=== PATIENT | male | born 1945 | race Caucasian/White ===

== ENCOUNTER 2019-04-26 06:06 | Day surgery (SDC) | payer MEDICARE, BC ==
[2019-04-26] MEDS ORDERED: Fentanyl 100 MCG/2 ML VIAL ONE (06:34)
[2019-04-26] MEDS ORDERED: Ondansetron HCl/PF 4 MG/2 ML Vial IVP PRN (06:45)
[2019-04-26] MEDS ORDERED: Promethazine HCl 25 MG/ML VIAL SLOW IVP PRN (06:45)
[2019-04-26] MEDS ORDERED: Promethazine HCl 25 MG/ML VIAL IM PRN (06:45)
[2019-04-26 06:55] LABS: PTT 29.2 SEC (22.9-36.1); Prothrombin Time 13.6 SEC (12.0-14.7)
[2019-04-26] MEDS ORDERED: cefTRIAXone\\ROCEPHIN 2 GM VIAL ONE (06:55)
[2019-04-26] MEDS ORDERED: Sodium Chloride 0.9% 100 ML ONE (06:55)
[2019-04-26 07:08] LABS: Anion Gap 13 mmol/L (10-20); BUN (Urea Nitrogen) 28 mg/dL (8.4-25.7); Calc. Creatinine Clearance 79 mL/min (70-130); Calcium 9.5 mg/dL (7.8-10.44); Carbon Dioxide 26 mmol/L (23-31); Chloride 105 mmol/L (98-107); Estimated GFR-MDRD 88; Glucose 156 mg/dL (83-110); Potassium 3.9 mmol/L (3.5-5.1); Sodium 140 mmol/L (136-145)
[2019-04-26 07:59] LABS: Band 6 % (5-11); Eosinophils 2 % (0-10); Hemoglobin 14.5 g/dL (14.0-18.0); Lymphocytes 10 % (21-51); MDiff Complete? YES; Mean Corpuscular HGB CONC 34.1 g/dL (32.0-36.0); Mean Corpuscular Volume 90.9 fL (78.0-98.0); Mean Platelet Volume 7.4 fL (7.4-10.4); Metamyelocyte 1 % (0-0); Monocytes 5 % (0-10); Neutrophil 64 % (42-75); Platelet Count 169 thou/uL (130-400); RBC Distribution Width 11.4 % (11.5-14.5); RBC Morphology Normal; Reactive Lymphocytes 12 % (0-10); Red Blood Cell (RBC) Count 4.66 mill/uL (4.70-6.10); White Blood Cell (WBC) Count 5.7 thou/uL (4.8-10.8)
[2019-04-26] MEDS ORDERED: B & O ONE (09:08)
[2019-04-26] MEDS ORDERED: B & O PR SCH (09:15)
--- NOTE | 2019-04-26 10:20 | OP ---
DATE OF PROCEDURE: 04/26/2019 PREOPERATIVE DIAGNOSES: Lower urinary tract symptoms, bladder outlet obstruction, failing medical therapy. PROCEDURES PERFORMED: Cysto, transurethral resection of the prostate. ANESTHESIA: General. ESTIMATED BLOOD LOSS: Less than 100. DRAINS PLACED: 22-[place] Frederick three way with about 60 mL in the balloon hooked up to continuous bladder irrigation. FINDINGS: He had mild meatal stenosis requiring urethral dilatation to 28-Tu[place]uan. He had 1+ trabeculation. Two ureteral orifices with clear efflux. No tumor, foreign body, or stone. The median lobe was moderately enlarged. He had large lateral lobes. The prostate itself was not very long. DESCRIPTION OF PROCEDURE: Obtained written and verbal consent from the patient after receiving IV antibiotics, he was taken to the operating suite. He was placed in the supine position on the treatment table. PlexiPulses were placed in his lower extremities and turned on. He was given a general anesthetic and oral obturator intubation. He was then placed in the dorsal lithotomy position. He was sterilely prepped and draped. Cystoscopy was performed with a 22-[place] sheath. This was well lubricated, passed under direct vision through the male urethra into the urinary bladder with aid of a 30-degree lens, video camera, and monitor. The bladder was examined both with 30-degree and 70-degree lens with the findings above. The instruments were removed and we brought in a 24-[place] resectoscope sheath with a visual obturator. This would not pass because of some mild meatal stenosis, so we dilated to 28-[place]uan with [place] sounds and then this passed well lubricated easily and through the male urethra and prostatic urethra into the bladder. [place] resectoscope with the Gyrus generator and Gyrus prostate loop, 30 degree lens were used for landmarks including the trigone, bladder neck, verumontanum were identified. The floor was resected from the 7 o'clock to 5 o'clock position down to capsular fibers and back to just proximal to the verumontanum in the left lobe from 12 o'clock to 5 o'clock and then in the right lobe from the 12 o'clock to 7 o'clock. Apical tissue was resected in halfly bites. Coagulating current was used to control hemostasis. We leaked out all chips and clots with the Aplicor evacuator. We reinspected and there was nothing in the bladder. At this point, there was no evidence of any injury. We obtained hemostasis one more time with electrocautery unit. The instruments were removed. Frederick catheter was placed with aid of a catheter guide, 60 mL placed in the balloon. It was hand irrigated, it was clear, it was hooked up to continuous bladder irrigation. He was taken out of the dorsal lithotomy position. The catheter was secured on mild traction to his right thigh with a Velcro leg strap. He was awakened, extubated, and taken by stretcher to recovery room. Job ID: [id number]
[2019-04-26] MEDS ORDERED: Lidocaine 1% PF 5 ML VIAL ONE (14:01)
[2019-04-26] MEDS ORDERED: Ondansetron PF 4 MG/2 ML Vial ONE (14:01)
[2019-04-26] MEDS ORDERED: Dexamethasone 20 MG/5 ML VIAL ONE (14:01)
[2019-04-26] MEDS ORDERED: PROPOFOL 200 MG/20 ML VIAL ONE (14:01)
[2019-04-26] MEDS ORDERED: Acetaminophen/Codeine 30-300mg Tablet PO SCH (14:30)
[2019-04-26] MEDS ORDERED: B & O PR PRN (15:00)
--- NOTE | 2019-04-26 15:18 | EKG ---
Test Reason : PREOP Blood Pressure : / mmHG Vent. Rate : 080 BPM Atrial Rate : 080 BPM P-R Int : 150 ms QRS Dur : 098 ms QT Int : 394 ms P-R-T Axes : 031 -26 019 degrees QTc Int : 454 ms Sinus rhythm with Premature supraventricular complexes with frequent Premature ventricular complexes Otherwise normal ECG When compared with ECG of 16-JUN-2011 09:43, Premature ventricular complexes are now Present Premature supraventricular complexes are now Present Confirmed by DR. Terrance CHUA ([id number]) on 04/26/2019 3:18:37 PM Referred By: CHILO Confirmed By:DR. Terrance CHUA
[2019-04-26 15:50] VITALS: BMI 24.8
[2019-04-26] MEDS: Melatonin 3 MG TAB PO SCH (20:45)
[2019-04-26] MEDS: Acetaminophen/Codeine 30-300mg Tablet PO SCH (20:45)
[2019-04-26] MEDS: Pregabalin 75 MG CAP PO SCH (20:46)
[2019-04-26] MEDS: Finasteride 5 MG TAB PO SCH (20:46)
[2019-04-26] MEDS: Simvastatin 5 MG TAB PO SCH (20:46)
[2019-04-27] MEDS: cefTRIAXone\\ROCEPHIN 1 GM in Sodium Chloride 0.9% 100 ML IVPB SCH (05:43)
[2019-04-27] MEDS: Losartan 25 MG TAB PO SCH (08:25)
[2019-04-27] MEDS: Amlodipine 5 MG TAB PO SCH (08:26)
[2019-04-27] MEDS: Acetaminophen/Codeine 30-300mg Tablet PO SCH ×2 (08:26→20:07)
[2019-04-27] MEDS: Pregabalin 75 MG CAP PO SCH ×2 (08:28→20:08)
[2019-04-27] MEDS: Hydrochlorothiazide 25 MG TAB PO SCH (08:28)
[2019-04-27] MEDS: Fish Oil 1,000 MG CAP PO SCH (08:28)
[2019-04-27] MEDS: Melatonin 3 MG TAB PO SCH (20:08)
[2019-04-27] MEDS: Simvastatin 5 MG TAB PO SCH (20:08)
[2019-04-27] MEDS: Finasteride 5 MG TAB PO SCH (20:08)
[2019-04-28] MEDS: cefTRIAXone\\ROCEPHIN 1 GM in Sodium Chloride 0.9% 100 ML IVPB SCH (05:10)
[2019-04-28 07:56] VITALS: TEMP 97.5
[2019-04-28] MEDS: Hydrochlorothiazide 25 MG TAB PO SCH (07:59)
[2019-04-28] MEDS: Losartan 25 MG TAB PO SCH (07:59)
[2019-04-28] MEDS: Amlodipine 5 MG TAB PO SCH (07:59)
[2019-04-28] MEDS: Pregabalin 75 MG CAP PO SCH (08:00)
[2019-04-28] MEDS: Fish Oil 1,000 MG CAP PO SCH (08:00)
[2019-04-28 08:02] VITALS: BP 152/64
[2019-04-28] MEDS: Acetaminophen/Codeine 30-300mg Tablet PO SCH (08:03)
== END 2019-04-28 10:30 | disposition home or self-care (01) ==
LOC: SDC 06:06 → SURG B 10:03 → SDC 04-28 10:30
PROVIDERS: ATTEND Urology
PROC: 0VT08ZZ Resection of Prostate, Via Natural or Artificial Opening Endoscopic (ICD-10-PCS; principal; 2019-04-26)
DX: N40.1 Benign prostatic hyperplasia with lower urinary tract symptoms (principal); N13.8 Other obstructive and reflux uropathy; N41.1 Chronic prostatitis; E89.0 Postprocedural hypothyroidism; Z79.899 Other long term (current) drug therapy
CPT/HCPCS: 36415; 80048; 85007; 85027; 85610; 85730; 87086; 88305; 93005; 93010; J0696; J1100; J2001; J2405; J2704; J3010; J3490

== ENCOUNTER 2020-07-17 08:29 | Outpatient (CLI) | payer MEDICARE, BC ==
--- NOTE | 2020-07-17 09:52 | RAD ---
LEFT HIP 2 VIEWS: Date: 07/17/2020 HISTORY: Left hip pain. FINDINGS: There are degenerative changes in the left hip manifested by osteophyte formation and joint space chalino rowing. No fracture, dislocation, or bony destruction is seen. IMPRESSION: Left hip osteoarthritis. POS: AH
== END 2020-07-17 08:30 | disposition home or self-care (01) ==
LOC: BICRAD 08:29
PROVIDERS: ATTEND Nurse Practitioner Family
DX: M25.552 Pain in left hip (principal); M16.12 Unilateral primary osteoarthritis, left hip

== ENCOUNTER 2020-12-21 10:42 | Outpatient (CLI) | payer MEDICARE, BC | END 2020-12-21 10:43 | disposition home or self-care (01) | LOC: BICMRI 10:42 | PROVIDERS: ATTEND Nurse Practitioner Family | DX: M48.02 Spinal stenosis, cervical region (principal); M47.812 Spondylosis without myelopathy or radiculopathy, cervical region; M47.813 Spondylosis without myelopathy or radiculopathy, cervicothoracic region; M48.03 Spinal stenosis, cervicothoracic region; M89.9 Disorder of bone, unspecified | CPT/HCPCS: 72141 ==

== ENCOUNTER 2021-01-03 12:20 | Outpatient (CLI) | payer MEDICARE, BC | END 2021-01-03 12:21 | disposition home or self-care (01) | LOC: BICULT 12:20 | PROVIDERS: ATTEND Nurse Practitioner Family | DX: R93.89 Abnormal findings on diagnostic imaging of other specified body structures (principal); E04.2 Nontoxic multinodular goiter | CPT/HCPCS: 76536 ==

== ENCOUNTER 2021-02-27 08:05 | Outpatient (CLI) | payer MEDICARE, BC | END 2021-02-27 08:06 | disposition home or self-care (01) | LOC: BICRAD 08:05 | PROVIDERS: ATTEND Neurological Surgery | DX: M47.22 Other spondylosis with radiculopathy, cervical region (principal) | CPT/HCPCS: 72050 ==

== ENCOUNTER 2021-07-24 10:33 | Outpatient (CLI) | payer MEDICARE, BC | END 2021-07-24 10:34 | disposition home or self-care (01) | LOC: BICULT 10:33 | PROVIDERS: ATTEND Otolaryngology Plastic Surgery within the Head & Neck | DX: E04.2 Nontoxic multinodular goiter (principal) | CPT/HCPCS: 76536 ==

== ENCOUNTER 2021-08-16 13:01 | Outpatient (CLI) | payer MEDICARE, BC ==
[2021-08-16 14:18] LABS: #Basophils 0.1 10x3/uL (0.0-0.2); #Eosinphils 0.2 10x3/uL (0.0-0.5); #Monocytes 0.7 10x3/uL (0.0-1.1); #Neutrophils 3.4 10x3/uL (1.5-8.4); %Basophils 0.9 % (0.0-2.0); %Eosinophils 2.5 % (0.0-6.0); %Lymphocytes 34.4 % (18.0-47.0); %Monocytes 10.6 % (0.0-10.0); %Neutrophils 51.4 % (40.0-75.0); Hemoglobin 13.1 g/dL (13.5-17.5); Mean Corpuscular HGB CONC 33.2 g/dL (32.0-36.0); Mean Corpuscular Hemoglobin 30.5 pg (27.0-33.0); Mean Corpuscular Volume 92.1 fl (81.2-95.1); Mean Platelet Volume 10.2 fl (7.4-10.4); Platelet Count 194 10x3/uL (150-450); RBC Distribution Width 12.2 % (11.5-14.5); Red Blood Cell (RBC) Count 4.29 10x6/uL (4.32-5.72); White Blood Cell (WBC) Count 6.5 10x3/uL (3.5-10.5)
[2021-08-16 14:37] LABS: Prothrombin Time 10.8 sec (9.5-12.1)
[2021-08-16 14:43] LABS: Anion Gap 11 mmol/L (10-20); BUN (Urea Nitrogen) 24 mg/dL (8.4-25.7); Calc. Creatinine Clearance 0 mL/min (70-130); Calcium 9.2 mg/dL (7.8-10.44); Carbon Dioxide 30 mmol/L (23-31); Chloride 104 mmol/L (98-107); Glucose 150 mg/dL (83-110); Potassium 4.2 mmol/L (3.5-5.1); Sodium 141 mmol/L (136-145)
[2021-08-17 11:36] LABS: SARS-CoV-2 PCR by NAA Not Detected (NotDetected)
== END 2021-08-16 13:02 | disposition home or self-care (01) ==
LOC: LABBT 13:01
PROVIDERS: ATTEND Orthopaedic Surgery
DX: Z01.818 Encounter for other preprocedural examination (principal); M16.12 Unilateral primary osteoarthritis, left hip; Z20.822 Contact with and (suspected) exposure to COVID-19
CPT/HCPCS: 80048; 85025; 85610; 87081; 93005; U0003; U0005; 93010

== ENCOUNTER 2021-08-21 06:37 | Inpatient (IN) | payer MEDICARE, BC ==
[2021-08-15 09:42] VITALS: BMI 21.7
[2021-08-21] MEDS ORDERED: Sodium Chloride 0.9% 100 ML ONE (07:27)
[2021-08-21] MEDS ORDERED: ceFAZolin 2 GM/DEX 5% 100 ML BAG ONE (07:27)
[2021-08-21] MEDS ORDERED: Tranexamic Acid 1,000 MG/10 ML VIAL ONE (07:27)
[2021-08-21] MEDS ORDERED: Vancomycin 1 GM/200 ML BAG ONE (07:27)
[2021-08-21] MEDS ORDERED: Bupivacaine 0.5% 10 ML VIAL ONE (07:46)
[2021-08-21] MEDS ORDERED: Fentanyl 100 MCG/2 ML VIAL ONE ×5 (08:16→12:26)
[2021-08-21] MEDS ORDERED: Midazolam HCl 2 mg/2 ml Vial ONE (08:16)
[2021-08-21] MEDS ORDERED: Bupivacaine PF 0.5% 30 ML VIAL ONE (08:54)
[2021-08-21] MEDS ORDERED: Morphine PF 10 MG/10 ML VIAL ONE (09:07)
[2021-08-21] MEDS ORDERED: Propofol 1,000 MG/100 ML VIAL IV ONE (09:09)
[2021-08-21] MEDS ORDERED: Bupivacaine HCl 0.5%/Epinephrine 1:200,000/PF 30 ml Vial ONE (09:31)
[2021-08-21] MEDS ORDERED: Lidocaine 1% PF 5 ML VIAL ONE ×2 (09:31→09:33)
[2021-08-21] MEDS ORDERED: ePHEDrine 50 MG/ML VIAL ONE (09:31)
[2021-08-21] MEDS ORDERED: Glycopyrrolate 0.2 MG/ML 5 ML SYRINGE ONE (09:31)
[2021-08-21] MEDS ORDERED: Ondansetron PF 4 MG/2 ML Vial ONE (09:31)
[2021-08-21] MEDS ORDERED: PROPOFOL 200 MG/20 ML VIAL ONE (09:31)
[2021-08-21] MEDS ORDERED: Rocuronium Bromide 10 MG/ML (10ML VIAL) ONE (09:31)
[2021-08-21] MEDS ORDERED: Dexamethasone 20 MG/5 ML VIAL ONE (09:31)
[2021-08-21] MEDS ORDERED: Ondansetron PF 4 MG/2 ML Vial IVP PRN (09:41)
[2021-08-21] MEDS ORDERED: HYDROcodone/Acetaminophen 10/325 mg Tablet PO PRN (09:41)
[2021-08-21] MEDS ORDERED: Acetaminophen 325 MG TAB PO PRN (09:41)
[2021-08-21] MEDS ORDERED: diphenhydrAMINE 25 MG CAP PO PRN ×2 (09:41→13:45)
[2021-08-21] MEDS ORDERED: Promethazine HCl 25 MG/ML VIAL IM PRN ×3 (09:41→13:45)
[2021-08-21] MEDS ORDERED: Zolpidem Tartrate 5 MG TAB PO PRN ×2 (09:41→13:45)
[2021-08-21] MEDS ORDERED: traMADol HCl 50 MG TAB PO PRN ×2 (09:41)
[2021-08-21] MEDS ORDERED: Promethazine HCl 25 MG/ML VIAL IVPB PRN (11:12)
[2021-08-21] MEDS ORDERED: Ondansetron HCl/PF 4 MG/2 ML Vial IVP PRN (11:12)
[2021-08-21] MEDS ORDERED: Ketorolac Tromethamine 30 MG/ML VIAL ONE (13:13)
[2021-08-21] MEDS ORDERED: HYDROcodone/Acetaminophen 10/325 mg Tablet ONE (13:35)
[2021-08-21] MEDS ORDERED: diphenhydrAMINE 50 MG/ML VIAL IM/IV PRN (13:45)
[2021-08-21] MEDS ORDERED: Fentanyl CADD 100 ML IVPB SCH (13:45)
[2021-08-21] MEDS ORDERED: Naloxone HCl 0.4 mg/ml Vial IV PRN (13:45)
[2021-08-21] MEDS ORDERED: Dexamethasone 4 mg/ml Vial ONE (13:53)
[2021-08-21] MEDS ORDERED: Ketorolac Tromethamine 30 MG/ML VIAL IM SCH (14:00)
[2021-08-21] MEDS: Pregabalin 75 MG CAP PO SCH ×2 (17:35→22:19)
[2021-08-21] MEDS: Sodium Chloride 0.9% 1,000 ML IV SCH ×2 (17:47→18:48)
[2021-08-21] MEDS: ceFAZolin Sodium/D5W 2 GM in Premix Bag 1 BAG IVPB SCH (17:48)
[2021-08-21] MEDS: Ondansetron PF 4 MG/2 ML Vial IVP PRN (17:48)
[2021-08-21] MEDS: Ketorolac Tromethamine 30 MG/ML VIAL IVP PRN (19:01)
[2021-08-21] MEDS: Aspirin 81 mg Enteric Coated Tablet PO SCH (22:18)
[2021-08-21] MEDS: Losartan 25 MG TAB PO SCH (22:18)
[2021-08-21] MEDS: Hydrochlorothiazide 25 MG TAB PO SCH (22:18)
[2021-08-21] MEDS: Finasteride 5 MG TAB PO SCH (22:18)
[2021-08-21] MEDS: Amlodipine 5 MG TAB PO SCH (22:19)
[2021-08-21] MEDS: Simvastatin 10 MG TAB PO SCH (22:33)
[2021-08-22] MEDS: ceFAZolin Sodium/D5W 2 GM in Premix Bag 1 BAG IVPB SCH (00:33)
[2021-08-22 04:26] LABS: Hemoglobin 12.8 g/dL (14.0-18.0); Mean Corpuscular HGB CONC 34.4 g/dL (32.0-36.0); Mean Corpuscular Hemoglobin 31.9 pg (27.0-31.0); Mean Corpuscular Volume 92.7 fL (78.0-98.0); Mean Platelet Volume 7.5 fL (7.4-10.4); Platelet Count 177 thou/uL (130-400); RBC Distribution Width 11.3 % (11.5-14.5); White Blood Cell (WBC) Count 7.3 thou/uL (4.8-10.8)
[2021-08-22] MEDS: Sodium Chloride 0.9% 1,000 ML IV SCH ×2 (05:49→18:15)
[2021-08-22] MEDS: Ketorolac Tromethamine 30 MG/ML VIAL IVP PRN (06:29)
[2021-08-22] MEDS ORDERED: HYDROcodone/Acetaminophen 10/325 mg Tablet PO PRN (09:48)
[2021-08-22] MEDS ORDERED: traMADol HCl 50 MG TAB PO PRN ×2 (09:51→09:52)
[2021-08-22] MEDS ORDERED: Fentanyl CADD 100 ML IVPB PRN (09:54)
[2021-08-22] MEDS: Aspirin 81 mg Enteric Coated Tablet PO SCH ×2 (10:14→22:18)
[2021-08-22] MEDS: Multivitamin W/ Minerals 1 TAB PO SCH (10:15)
[2021-08-22] MEDS: Ferrous Gluconate 324 MG TAB PO SCH ×2 (10:15→22:19)
[2021-08-22] MEDS: Pregabalin 75 MG CAP PO SCH ×3 (10:15→22:19)
[2021-08-22] MEDS: HYDROcodone/Acetaminophen 10/325 mg Tablet PO PRN ×2 (10:25→14:50)
[2021-08-22] MEDS: Senokot S 8.6-50 MG TAB PO SCH ×2 (10:46→22:25)
[2021-08-22] MEDS: Hydrochlorothiazide 25 MG TAB PO SCH (22:18)
[2021-08-22] MEDS: Finasteride 5 MG TAB PO SCH (22:19)
[2021-08-22] MEDS: Losartan 25 MG TAB PO SCH (22:19)
[2021-08-22] MEDS: Amlodipine 5 MG TAB PO SCH (22:19)
[2021-08-22] MEDS: Simvastatin 10 MG TAB PO SCH (22:32)
[2021-08-23] MEDS: Ondansetron PF 4 MG/2 ML Vial IVP PRN (01:58)
[2021-08-23] MEDS: Sodium Chloride 0.9% 1,000 ML IV SCH (04:29)
[2021-08-23] MEDS: HYDROcodone/Acetaminophen 10/325 mg Tablet PO PRN ×2 (05:06→10:26)
[2021-08-23] MEDS: Pregabalin 75 MG CAP PO SCH (10:18)
[2021-08-23] MEDS: Aspirin 81 mg Enteric Coated Tablet PO SCH (10:18)
[2021-08-23] MEDS: Multivitamin W/ Minerals 1 TAB PO SCH (10:19)
[2021-08-23] MEDS: Ferrous Gluconate 324 MG TAB PO SCH (10:19)
[2021-08-23] MEDS: Senokot S 8.6-50 MG TAB PO SCH (10:26)
[2021-08-23] MEDS ORDERED: Bisacodyl 10 MG SUPP PR SCH (11:00)
[2021-08-23] MEDS ORDERED: Polyethylene Glycol 3350 17 GM Packet PO SCH (11:00)
[2021-08-23 12:01] VITALS: BP 126/62; TEMP 98.5
[2021-08-24] MEDS ORDERED: Polyethylene Glycol 3350 17 GM Packet PO SCH (09:00)
== END 2021-08-23 16:23 | disposition home or self-care (01) | DRG 470 ==
LOC: SDC 06:37 → SJJU 09:41
PROVIDERS: ADMIT Orthopaedic Surgery; ATTEND Orthopaedic Surgery
PROC: 0SRB03A Replacement of Left Hip Joint with Ceramic Synthetic Substitute, Uncemented, Open Approach (ICD-10-PCS; principal; 2021-08-21)
DX: M16.12 Unilateral primary osteoarthritis, left hip (principal); F03.90 Unspecified dementia, unspecified severity, without behavioral disturbance, psychotic disturbance, mood disturbance, and anxiety; Z96.651 Presence of right artificial knee joint; F41.9 Anxiety disorder, unspecified; Z90.89 Acquired absence of other organs; Z98.42 Cataract extraction status, left eye; Z98.41 Cataract extraction status, right eye; Z98.890 Other specified postprocedural states
CPT/HCPCS: 36415; 85027; C1889; J1100; J1885; J2250; J2274; J2405; J2704; J3010; J3370; J3490; J7050; S0020

== ENCOUNTER 2022-03-19 15:27 | Inpatient (IN) | payer MEDICARE, BC ==
[~2022-03-19 15:27] MED LIST: Heparin 1,000 UNITS/ML VIAL ONE
[2022-03-19] MEDS ORDERED: Morphine 4 MG/ML VIAL SLOW IVP PRN (20:17)
[2022-03-19] MEDS ORDERED: Benzonatate 100 MG CAP PO PRN (20:18)
[2022-03-19] MEDS ORDERED: Dextrose 50% Abboject 50 ML SYRINGE SLOW IVP PRN (20:19)
[2022-03-19] MEDS ORDERED: Acetaminophen 325 MG TAB PO PRN (20:19)
[2022-03-19] MEDS ORDERED: Acetaminophen 650 MG Suppository PR PRN (20:19)
[2022-03-19] MEDS ORDERED: Dextrose 5% in Water 1,000 ML IV PRN (20:19)
[2022-03-19] MEDS: Ketorolac Tromethamine 30 MG/ML VIAL IVP SCH (20:50)
[2022-03-19 20:51] VITALS: BMI 20.9
[2022-03-19] MEDS ORDERED: traZODone HCl 50 MG TAB PO SCH (23:59)
[2022-03-20] MEDS ORDERED: Cefepime 2 GM in Sodium Chloride 0.9% 100 ML IVPB SCH (03:00)
[2022-03-20] MEDS: Morphine 4 MG/ML VIAL SLOW IVP PRN ×2 (08:00→11:36)
[2022-03-20 08:19] LABS: #Eosinphils 0.1 thou/uL (0.0-0.7); #Lymphocytes 1.1 thou/uL (1.20-3.40); #Monocytes 0.8 thou/uL (0.11-0.59); #Neutrophils 6.3 thou/uL (1.40-6.50); %Basophils 0.1 % (0.0-1.0); %Eosinophils 0.6 % (0.0-10.0); %Lymphocytes 13.6 % (21.0-51.0); %Monocytes 9.9 % (0.0-10.0); %Neutrophils 75.7 % (42.0-75.0); Hemoglobin 10.1 g/dL (14.0-18.0); Mean Corpuscular HGB CONC 33.7 g/dL (32.0-36.0); Mean Corpuscular Hemoglobin 32.3 pg (27.0-31.0); Mean Corpuscular Volume 95.8 fL (78.0-98.0); Mean Platelet Volume 7.3 fL (7.4-10.4); Platelet Count 221 thou/uL (130-400); RBC Distribution Width 12.2 % (11.5-14.5); Red Blood Cell (RBC) Count 3.12 mill/uL (4.70-6.10); White Blood Cell (WBC) Count 8.3 thou/uL (4.8-10.8)
[2022-03-20 08:31] LABS: Anion Gap 13 mmol/L (10-20); BUN (Urea Nitrogen) 15 mg/dL (8.4-25.7); Calc. Creatinine Clearance 86 mL/min (70-130); Calcium 8.9 mg/dL (7.8-10.44); Carbon Dioxide 27 mmol/L (23-31); Chloride 104 mmol/L (98-107); Estimated GFR 95; Glucose 138 mg/dL (83-110); Potassium 3.7 mmol/L (3.5-5.1); Sodium 140 mmol/L (136-145)
[2022-03-20] MEDS ORDERED: Piperacillin/Tazobactam 3.375 GM in Sodium Chloride 0.9% 100 ML IVPB SCH ×2 (11:15→12:00)
[2022-03-20] MEDS: Enoxaparin Sodium 40 MG/0.4 ML SYRINGE SC SCH (11:37)
[2022-03-20] MEDS ORDERED: Iopamidol-370 76% 500 ML 1 ML ONE (11:54)
[2022-03-20] MEDS: Ondansetron PF 4 MG/2 ML Vial IVP PRN (13:34)
[2022-03-20] MEDS: Azithromycin 500 MG in Sodium Chloride 0.9% 250 ML 250 ML IVPB SCH (15:12)
[2022-03-20] MEDS: methylPREDNISolone Sod Succ 40 MG VIAL IVP SCH ×2 (15:12→20:59)
[2022-03-20] MEDS: Piperacillin/Tazobactam 3.375 GM in Sodium Chloride 0.9% 100 ML IVPB SCH (18:01)
[2022-03-20] MEDS: Amlodipine 5 MG TAB PO SCH (20:59)
[2022-03-20] MEDS: Simvastatin 10 MG TAB PO SCH (20:59)
[2022-03-20] MEDS: Finasteride 5 MG TAB PO SCH (20:59)
[2022-03-20] MEDS: Ketorolac Tromethamine 30 MG/ML VIAL IVP SCH ×2 (20:59→21:05)
[2022-03-20] MEDS: Pregabalin 75 MG CAP PO SCH (20:59)
[2022-03-20] MEDS: Melatonin 3 MG TAB PO SCH (20:59)
[2022-03-20] MEDS ORDERED: Ketorolac Tromethamine 30 MG/ML VIAL ONE (21:05)
[2022-03-21] MEDS: Piperacillin/Tazobactam 3.375 GM in Sodium Chloride 0.9% 100 ML IVPB SCH ×3 (01:09→18:12)
[2022-03-21] MEDS: Morphine 4 MG/ML VIAL SLOW IVP PRN (01:22)
[2022-03-21] MEDS: methylPREDNISolone Sod Succ 40 MG VIAL IVP SCH ×3 (05:10→21:19)
[2022-03-21] MEDS: Acetaminophen/Codeine 30-300mg Tablet PO PRN (08:07)
[2022-03-21] MEDS: Losartan 25 MG TAB PO SCH (08:08)
[2022-03-21] MEDS: Enoxaparin Sodium 40 MG/0.4 ML SYRINGE SC SCH (08:08)
[2022-03-21] MEDS: Pregabalin 75 MG CAP PO SCH ×3 (08:09→21:20)
[2022-03-21] MEDS ORDERED: Magnevist 469MG/ML 20 ML VIAL ONE (12:34)
[2022-03-21] MEDS: HumaLOG 300 UNITS/3 ML VIAL SC PRN ×3 (12:45→21:22)
[2022-03-21] MEDS ORDERED: Communication Order-Pharmacy FS ONE (15:25)
[2022-03-21] MEDS: Azithromycin 500 MG in Sodium Chloride 0.9% 250 ML 250 ML IVPB SCH (16:05)
[2022-03-21] MEDS ORDERED: VANCOMYCIN 1.75 GM/500 ML BAG 1.75 GM in Premix Bag 1 BAG IVPB SCH ×2 (16:15→20:00)
[2022-03-21] MEDS ORDERED: VANCOMYCIN 1.25 GM/250 ML BAG IVPB SCH (21:00)
[2022-03-21] MEDS ORDERED: Ketorolac Tromethamine 30 MG/ML VIAL ONE (21:12)
[2022-03-21] MEDS: Finasteride 5 MG TAB PO SCH (21:19)
[2022-03-21] MEDS: Melatonin 3 MG TAB PO SCH (21:19)
[2022-03-21] MEDS: Simvastatin 10 MG TAB PO SCH (21:20)
[2022-03-21] MEDS: Ketorolac Tromethamine 30 MG/ML VIAL IVP SCH (21:21)
[2022-03-21] MEDS: Amlodipine 5 MG TAB PO SCH (21:21)
[2022-03-21 21:56] LABS: Strep pneumo Urine Ag NEGATIVE (NEGATIVE)
[2022-03-21 22:34] LABS: Legionella Urinary Ag Negative (Negative)
[2022-03-22] MEDS: Piperacillin/Tazobactam 3.375 GM in Sodium Chloride 0.9% 100 ML IVPB SCH ×3 (01:12→17:42)
[2022-03-22] MEDS: HumaLOG 300 UNITS/3 ML VIAL SC PRN ×4 (05:47→20:43)
[2022-03-22] MEDS: methylPREDNISolone Sod Succ 40 MG VIAL IVP SCH ×3 (05:48→20:46)
[2022-03-22 06:31] LABS: #Lymphocytes 0.8 thou/uL (1.20-3.40); #Monocytes 0.5 thou/uL (0.11-0.59); #Neutrophils 10.2 thou/uL (1.40-6.50); %Eosinophils 0.1 % (0.0-10.0); %Lymphocytes 7.3 % (21.0-51.0); %Monocytes 4.4 % (0.0-10.0); %Neutrophils 88.2 % (42.0-75.0); Mean Corpuscular HGB CONC 32.9 g/dL (32.0-36.0); Mean Corpuscular Hemoglobin 31.5 pg (27.0-31.0); Mean Corpuscular Volume 95.8 fL (78.0-98.0); Mean Platelet Volume 8.2 fL (7.4-10.4); Platelet Count 233 thou/uL (130-400); RBC Distribution Width 12.1 % (11.5-14.5); Red Blood Cell (RBC) Count 3.48 mill/uL (4.70-6.10); White Blood Cell (WBC) Count 11.6 thou/uL (4.8-10.8)
[2022-03-22] MEDS: Enoxaparin Sodium 40 MG/0.4 ML SYRINGE SC SCH (08:59)
[2022-03-22] MEDS: Pregabalin 75 MG CAP PO SCH ×3 (09:00→20:30)
[2022-03-22] MEDS: Losartan 25 MG TAB PO SCH (09:01)
[2022-03-22] MEDS: Vancomycin 1 GM in Premix Bag 1 BAG IVPB SCH ×2 (09:26→20:28)
[2022-03-22] MEDS ORDERED: Piperacillin/Tazobactam 3.375 GM VIAL ONE (11:06)
[2022-03-22] MEDS: Acetaminophen/Codeine 30-300mg Tablet PO PRN (11:18)
[2022-03-22] MEDS: Azithromycin 500 MG in Sodium Chloride 0.9% 250 ML 250 ML IVPB SCH (15:34)
[2022-03-22] MEDS: Amlodipine 5 MG TAB PO SCH (20:29)
[2022-03-22] MEDS: Finasteride 5 MG TAB PO SCH (20:29)
[2022-03-22] MEDS: Simvastatin 10 MG TAB PO SCH (20:30)
[2022-03-22] MEDS: Melatonin 3 MG TAB PO SCH (20:30)
[2022-03-22] MEDS: Ketorolac Tromethamine 30 MG/ML VIAL IVP PRN (20:31)
[2022-03-23] MEDS: Morphine 4 MG/ML VIAL SLOW IVP PRN (01:09)
[2022-03-23] MEDS: Piperacillin/Tazobactam 3.375 GM in Sodium Chloride 0.9% 100 ML IVPB SCH ×3 (01:10→17:12)
[2022-03-23] MEDS: Acetaminophen/Codeine 30-300mg Tablet PO PRN (05:14)
[2022-03-23] MEDS: methylPREDNISolone Sod Succ 40 MG VIAL IVP SCH ×2 (05:15→20:48)
[2022-03-23] MEDS: HumaLOG 300 UNITS/3 ML VIAL SC PRN ×4 (05:18→20:54)
[2022-03-23] MEDS: Ketorolac Tromethamine 30 MG/ML VIAL IVP PRN ×2 (05:20→23:19)
[2022-03-23 07:42] LABS: Vancomycin, Trough 12.9 ug/mL
[2022-03-23] MEDS: Pregabalin 75 MG CAP PO SCH ×3 (08:12→20:49)
[2022-03-23] MEDS: Enoxaparin Sodium 40 MG/0.4 ML SYRINGE SC SCH (08:13)
[2022-03-23] MEDS: Losartan 25 MG TAB PO SCH (08:13)
[2022-03-23] MEDS: VANCOMYCIN 1.25 GM/250 ML BAG 1.25 GM in Premix Bag 1 BAG IVPB SCH ×2 (08:16→21:18)
[2022-03-23] MEDS: Azithromycin 500 MG in Sodium Chloride 0.9% 250 ML 250 ML IVPB SCH (15:54)
[2022-03-23] MEDS: Ondansetron ODT 4 MG TAB PO PRN (17:27)
[2022-03-23] MEDS: Amlodipine 5 MG TAB PO SCH (20:48)
[2022-03-23] MEDS: Melatonin 3 MG TAB PO SCH (20:49)
[2022-03-23] MEDS: Finasteride 5 MG TAB PO SCH (20:50)
[2022-03-23] MEDS: Simvastatin 10 MG TAB PO SCH (20:54)
[2022-03-23] MEDS: Ondansetron PF 4 MG/2 ML Vial IVP PRN (23:19)
[2022-03-24] MEDS: Piperacillin/Tazobactam 3.375 GM in Sodium Chloride 0.9% 100 ML IVPB SCH ×4 (00:23→17:04)
[2022-03-24] MEDS: Acetaminophen/Codeine 30-300mg Tablet PO PRN ×2 (01:45→20:43)
[2022-03-24] MEDS: HumaLOG 300 UNITS/3 ML VIAL SC PRN ×3 (06:01→20:49)
[2022-03-24] MEDS: VANCOMYCIN 1.25 GM/250 ML BAG 1.25 GM in Premix Bag 1 BAG IVPB SCH (08:12)
[2022-03-24] MEDS: Enoxaparin Sodium 40 MG/0.4 ML SYRINGE SC SCH (08:13)
[2022-03-24] MEDS: Ondansetron PF 4 MG/2 ML Vial IVP PRN ×2 (08:13→19:16)
[2022-03-24] MEDS: methylPREDNISolone Sod Succ 40 MG VIAL IVP SCH (08:17)
[2022-03-24] MEDS: Pregabalin 75 MG CAP PO SCH ×3 (08:17→20:43)
[2022-03-24] MEDS: Losartan 25 MG TAB PO SCH (08:17)
[2022-03-24] MEDS: Ondansetron ODT 4 MG TAB PO PRN (13:05)
[2022-03-24] MEDS: Metoclopramide HCl 10 MG/2 ML VIAL IVP PRN ×2 (14:31→23:27)
[2022-03-24] MEDS: Amlodipine 5 MG TAB PO SCH (20:44)
[2022-03-24] MEDS: Simvastatin 10 MG TAB PO SCH (20:44)
[2022-03-24] MEDS: Finasteride 5 MG TAB PO SCH (20:44)
[2022-03-24] MEDS: Melatonin 3 MG TAB PO SCH (21:39)
[2022-03-24] MEDS: Ondansetron PF 4 MG/2 ML Vial IVP SCH (23:27)
[2022-03-24] MEDS: Ketorolac Tromethamine 30 MG/ML VIAL IVP PRN (23:27)
[2022-03-25] MEDS: Piperacillin/Tazobactam 3.375 GM in Sodium Chloride 0.9% 100 ML IVPB SCH ×4 (02:24→23:30)
[2022-03-25] MEDS: Ketorolac Tromethamine 30 MG/ML VIAL IVP PRN ×2 (05:35→16:07)
[2022-03-25] MEDS: Ondansetron PF 4 MG/2 ML Vial IVP SCH ×4 (05:35→23:30)
[2022-03-25] MEDS: HumaLOG 300 UNITS/3 ML VIAL SC PRN ×3 (05:50→17:08)
[2022-03-25] MEDS: Losartan 25 MG TAB PO SCH (08:25)
[2022-03-25] MEDS: Enoxaparin Sodium 40 MG/0.4 ML SYRINGE SC SCH (08:25)
[2022-03-25] MEDS: Pregabalin 75 MG CAP PO SCH ×3 (08:26→21:08)
[2022-03-25] MEDS: Acetaminophen/Codeine 30-300mg Tablet PO PRN ×2 (08:37→21:07)
[2022-03-25] MEDS: Metoclopramide HCl 10 MG/2 ML VIAL IVP PRN ×2 (15:02→21:08)
[2022-03-25] MEDS: Melatonin 3 MG TAB PO SCH (21:07)
[2022-03-25] MEDS: Finasteride 5 MG TAB PO SCH (21:08)
[2022-03-25] MEDS: Amlodipine 5 MG TAB PO SCH (21:08)
[2022-03-25] MEDS: Ondansetron PF 4 MG/2 ML Vial IVP PRN (21:08)
[2022-03-25] MEDS: Simvastatin 10 MG TAB PO SCH (21:13)
[2022-03-26] MEDS: Ondansetron PF 4 MG/2 ML Vial IVP SCH ×3 (04:55→17:22)
[2022-03-26 06:12] LABS: #Basophils 0.1 thou/uL (0.0-0.2); #Eosinphils 0.1 thou/uL (0.0-0.7); #Monocytes 0.9 thou/uL (0.11-0.59); #Neutrophils 10.5 thou/uL (1.40-6.50); %Basophils 0.7 % (0.0-1.0); %Lymphocytes 8.2 % (21.0-51.0); %Monocytes 7.3 % (0.0-10.0); %Neutrophils 82.9 % (42.0-75.0); Hemoglobin 10.8 g/dL (14.0-18.0); Mean Corpuscular Hemoglobin 30.7 pg (27.0-31.0); Mean Corpuscular Volume 95.9 fL (78.0-98.0); Mean Platelet Volume 8.2 fL (7.4-10.4); Platelet Count 221 thou/uL (130-400); RBC Distribution Width 12.5 % (11.5-14.5); Red Blood Cell (RBC) Count 3.53 mill/uL (4.70-6.10); White Blood Cell (WBC) Count 12.7 thou/uL (4.8-10.8)
[2022-03-26 06:37] LABS: Anion Gap 9 mmol/L (10-20); BUN (Urea Nitrogen) 19 mg/dL (8.4-25.7); Calc. Creatinine Clearance 74 mL/min (70-130); Calcium 8.1 mg/dL (7.8-10.44); Carbon Dioxide 30 mmol/L (23-31); Chloride 103 mmol/L (98-107); Estimated GFR 91; Glucose 129 mg/dL (83-110); Potassium 3.8 mmol/L (3.5-5.1); Sodium 138 mmol/L (136-145)
[2022-03-26] MEDS: Pregabalin 75 MG CAP PO SCH ×3 (08:31→20:36)
[2022-03-26] MEDS: Losartan 25 MG TAB PO SCH (08:31)
[2022-03-26] MEDS: Acetaminophen/Codeine 30-300mg Tablet PO PRN ×2 (08:31→20:35)
[2022-03-26] MEDS: Piperacillin/Tazobactam 3.375 GM in Sodium Chloride 0.9% 100 ML IVPB SCH ×2 (08:33→16:17)
[2022-03-26] MEDS: Enoxaparin Sodium 40 MG/0.4 ML SYRINGE SC SCH (08:33)
[2022-03-26] MEDS: Metoclopramide HCl 10 MG/2 ML VIAL IVP PRN ×3 (08:33→20:35)
[2022-03-26] MEDS ORDERED: Iopamidol-370 76% 500 ML 1 ML ONE (09:26)
[2022-03-26] MEDS: HumaLOG 300 UNITS/3 ML VIAL SC PRN ×2 (11:20→17:22)
[2022-03-26] MEDS: Ondansetron PF 4 MG/2 ML Vial IVP PRN (20:35)
[2022-03-26] MEDS: Finasteride 5 MG TAB PO SCH (20:36)
[2022-03-26] MEDS: Melatonin 3 MG TAB PO SCH (20:36)
[2022-03-26] MEDS: Amlodipine 5 MG TAB PO SCH (20:36)
[2022-03-26] MEDS: Simvastatin 10 MG TAB PO SCH (21:10)
[2022-03-27] MEDS: Piperacillin/Tazobactam 3.375 GM in Sodium Chloride 0.9% 100 ML IVPB SCH ×3 (01:03→17:26)
[2022-03-27] MEDS: Ondansetron PF 4 MG/2 ML Vial IVP SCH ×5 (01:03→23:33)
[2022-03-27] MEDS: Pregabalin 75 MG CAP PO SCH ×3 (09:06→20:25)
[2022-03-27] MEDS: Enoxaparin Sodium 40 MG/0.4 ML SYRINGE SC SCH (09:08)
[2022-03-27] MEDS: Losartan 25 MG TAB PO SCH (09:08)
[2022-03-27] MEDS: Acetaminophen/Codeine 30-300mg Tablet PO PRN ×2 (09:22→20:26)
[2022-03-27] MEDS: HumaLOG 300 UNITS/3 ML VIAL SC PRN (12:18)
[2022-03-27] MEDS: Metoclopramide HCl 10 MG TAB PO SCH ×2 (17:55→20:27)
[2022-03-27] MEDS: Ondansetron PF 4 MG/2 ML Vial IVP PRN (20:25)
[2022-03-27] MEDS: Melatonin 3 MG TAB PO SCH (20:26)
[2022-03-27] MEDS: Mirtazapine 30 MG TAB PO SCH (20:26)
[2022-03-27] MEDS: Amlodipine 5 MG TAB PO SCH (20:27)
[2022-03-27] MEDS: Finasteride 5 MG TAB PO SCH (20:27)
[2022-03-27] MEDS: Simvastatin 10 MG TAB PO SCH (20:27)
[2022-03-28] MEDS: Piperacillin/Tazobactam 3.375 GM in Sodium Chloride 0.9% 100 ML IVPB SCH ×3 (01:01→17:20)
[2022-03-28] MEDS: Ondansetron PF 4 MG/2 ML Vial IVP SCH ×3 (05:07→17:20)
[2022-03-28 07:39] LABS: #Eosinphils 0.5 thou/uL (0.0-0.7); #Lymphocytes 1.4 thou/uL (1.20-3.40); #Monocytes 1.1 thou/uL (0.11-0.59); %Basophils 0.4 % (0.0-1.0); %Eosinophils 4.8 % (0.0-10.0); %Lymphocytes 12.7 % (21.0-51.0); %Monocytes 9.9 % (0.0-10.0); %Neutrophils 72.3 % (42.0-75.0); Hemoglobin 10.6 g/dL (14.0-18.0); Mean Corpuscular HGB CONC 31.1 g/dL (32.0-36.0); Mean Corpuscular Hemoglobin 30.3 pg (27.0-31.0); Mean Corpuscular Volume 97.4 fL (78.0-98.0); Mean Platelet Volume 7.8 fL (7.4-10.4); Platelet Count 242 thou/uL (130-400); RBC Distribution Width 12.6 % (11.5-14.5); White Blood Cell (WBC) Count 11.1 thou/uL (4.8-10.8)
[2022-03-28] MEDS: Acetaminophen/Codeine 30-300mg Tablet PO PRN (08:19)
[2022-03-28] MEDS: Pregabalin 75 MG CAP PO SCH ×3 (08:21→20:30)
[2022-03-28] MEDS: Metoclopramide HCl 10 MG TAB PO SCH ×4 (08:21→20:31)
[2022-03-28] MEDS: Losartan 25 MG TAB PO SCH (08:21)
[2022-03-28] MEDS: Enoxaparin Sodium 40 MG/0.4 ML SYRINGE SC SCH (08:22)
[2022-03-28] MEDS ORDERED: Polyethylene Glycol 3350 17 GM Packet PO PRN (08:36)
[2022-03-28] MEDS: HumaLOG 300 UNITS/3 ML VIAL SC PRN ×2 (12:15→20:34)
[2022-03-28] MEDS: Mirtazapine 30 MG TAB PO SCH (20:30)
[2022-03-28] MEDS: Melatonin 3 MG TAB PO SCH (20:30)
[2022-03-28] MEDS: Simvastatin 10 MG TAB PO SCH (20:31)
[2022-03-28] MEDS: Finasteride 5 MG TAB PO SCH (20:31)
[2022-03-28] MEDS: Amlodipine 5 MG TAB PO SCH (20:32)
[2022-03-29] MEDS: Acetaminophen/Codeine 30-300mg Tablet PO PRN (01:48)
[2022-03-29] MEDS: Ondansetron PF 4 MG/2 ML Vial IVP SCH ×3 (01:50→11:44)
[2022-03-29] MEDS: Piperacillin/Tazobactam 3.375 GM in Sodium Chloride 0.9% 100 ML IVPB SCH ×2 (01:50→08:25)
[2022-03-29 07:00] LABS: Anion Gap 13 mmol/L (10-20); BUN (Urea Nitrogen) 13 mg/dL (8.4-25.7); Calc. Creatinine Clearance 72 mL/min (70-130); Calcium 8.1 mg/dL (7.8-10.44); Carbon Dioxide 31 mmol/L (23-31); Chloride 99 mmol/L (98-107); Estimated GFR 90; Glucose 160 mg/dL (83-110); Potassium 4.1 mmol/L (3.5-5.1); Sodium 139 mmol/L (136-145)
[2022-03-29] MEDS: Pregabalin 75 MG CAP PO SCH ×2 (08:25→14:08)
[2022-03-29] MEDS: Enoxaparin Sodium 40 MG/0.4 ML SYRINGE SC SCH (08:25)
[2022-03-29] MEDS: Metoclopramide HCl 10 MG TAB PO SCH ×2 (08:25→11:44)
[2022-03-29] MEDS: Losartan 25 MG TAB PO SCH (08:25)
[2022-03-29 08:30] VITALS: BP 144/72; TEMP 97.2
[2022-03-29] MEDS: HumaLOG 300 UNITS/3 ML VIAL SC PRN (11:44)
[2022-03-29] MEDS ORDERED: Bisacodyl 10 MG SUPP PR PRN (12:11)
== END 2022-03-29 16:05 | DRG 177 ==
LOC: T4-A 15:27
PROVIDERS: ADMIT Internal Medicine; ATTEND Internal Medicine
PROC: 02HV33Z Insertion of Infusion Device into Superior Vena Cava, Percutaneous Approach (ICD-10-PCS; principal; 2022-03-28)
PROC: B5181ZA Fluoroscopy of Superior Vena Cava using Low Osmolar Contrast, Guidance (ICD-10-PCS; 2022-03-28)
PROC: B548ZZA Ultrasonography of Superior Vena Cava, Guidance (ICD-10-PCS; 2022-03-28)
DX: J85.1 Abscess of lung with pneumonia (principal); E43 Unspecified severe protein-calorie malnutrition; J15.9 Unspecified bacterial pneumonia; J91.8 Pleural effusion in other conditions classified elsewhere; K86.2 Cyst of pancreas; J85.0 Gangrene and necrosis of lung; U09.9 Post COVID-19 condition, unspecified; Z20.822 Contact with and (suspected) exposure to COVID-19; E78.5 Hyperlipidemia, unspecified; E11.9 Type 2 diabetes mellitus without complications; K86.89 Other specified diseases of pancreas; E04.2 Nontoxic multinodular goiter; I10 Essential (primary) hypertension; Z96.651 Presence of right artificial knee joint; Z96.642 Presence of left artificial hip joint; Z68.20 Body mass index [BMI] 20.0-20.9, adult; Z79.899 Other long term (current) drug therapy; Z87.01 Personal history of pneumonia (recurrent); Z98.890 Other specified postprocedural states
CPT/HCPCS: 36415; 36416; 36569; 71045; 71260; 72193; 74170; 74183; 80048; 80053; 80202; 82565; 83880; 84484; 85025; 87040; 87070; 87102; 87205; 87449; 87899; 93005; 93306; 96374; 96375; A9579; C1751; J0456; J0692; J1644; J1650; J1815; J1885; J2270; J2405; J2543; J2765; J2920; J3370; J3480; J3490; J7050; Q0162; Q9967; U0003; U0005

== ENCOUNTER 2022-04-03 20:56 | Inpatient (IN) | payer MEDICARE, BC ==
[2022-04-03 21:40] LABS: Bilirubin Negative (Negative); Blood, Urine Negative (Negative); Clarity Clear (Clear); Glucose, Urine (Dipstick) Normal (Negative); Ketone, Urine Negative (Negative); Leukocyte Negative Leu/uL (Negative); Nitrite Negative (Negative); Protein, Urine (Dipstick) 20 mg/dL (Neg-Trace); Urobilinogen Normal mg/dL (Less than 2)
[2022-04-03 21:59] LABS: #Eosinphils 0.1 thou/uL (0.0-0.7); #Monocytes 1.2 thou/uL (0.11-0.59); #Neutrophils 5.3 thou/uL (1.40-6.50); %Basophils 0.5 % (0.0-1.0); %Eosinophils 1.2 % (0.0-10.0); %Monocytes 13.8 % (0.0-10.0); %Neutrophils 61.5 % (42.0-75.0); Hemoglobin 8.6 g/dL (14.0-18.0); Mean Corpuscular Hemoglobin 30.5 pg (27.0-31.0); Mean Corpuscular Volume 95.5 fL (78.0-98.0); Platelet Count 224 thou/uL (130-400); RBC Distribution Width 12.9 % (11.5-14.5); Red Blood Cell (RBC) Count 2.82 mill/uL (4.70-6.10); White Blood Cell (WBC) Count 8.5 thou/uL (4.8-10.8)
[2022-04-03 22:18] LABS: ALT (SGPT) 9 U/L (8-55); AST (SGOT) 11 U/L (5-34); Albumin 2.6 g/dL (3.4-4.8); Alkaline Phosphatase 89 U/L (40-110); Anion Gap 11 mmol/L (10-20); BUN (Urea Nitrogen) 14 mg/dL (8.4-25.7); Bilirubin, Total 0.4 mg/dL (0.2-1.2); Calc. Creatinine Clearance 0 mL/min (70-130); Calcium 7.8 mg/dL (7.8-10.44); Carbon Dioxide 33 mmol/L (23-31); Chloride 98 mmol/L (98-107); Estimated GFR 89; Globulin 2.3 g/dL (2.4-3.5); Glucose 197 mg/dL (83-110); Potassium 3.9 mmol/L (3.5-5.1); Protein, Total 4.9 g/dL (5.8-8.1); Sodium 138 mmol/L (136-145)
[2022-04-03] MEDS ORDERED: Cefepime 2 GM VIAL ONE (22:39)
[2022-04-03] MEDS ORDERED: VANCOMYCIN 1.75 GM/500 ML BAG 1.75 GM in Premix Bag 1 BAG IVPB SCH (22:45)
[2022-04-04] MEDS ORDERED: Acetaminophen 650 MG Suppository PR PRN (00:06)
[2022-04-04] MEDS ORDERED: Ondansetron ODT 4 MG TAB PO PRN (00:06)
[2022-04-04 01:13] LABS: Actual Bicarbonate (HCO3a) 30.7 mEq/L (22-28); Analyzer IN Cardio ER; Base Excess (BEa) 6.3 mEq/L (-2.0 to +3.0); CO2 Tension 42.8 mmHg (35.0-45.0); Calcium, Ionized (arterial) 1.13 mmol/L (1.12-1.30); Carboxyhemoglobin (COHb) 0.9 gm% (0.0-3.0); Hemoglobin (Hb) 15.4 g/dL (14.0-18.0); O2 Tension (PaO2), arterial 64.8 mmHg (> 70.0); Potassium - ABG Lab 3.64 mmol/L (3.70-5.30); pH, Arterial 7.47 (7.35-7.45)
[2022-04-04 01:19] LABS: SARS-CoV-2 NAA Rapid Test Not Detected (NotDetected)
[2022-04-04] MEDS ORDERED: Meropenem 1 GM in Sodium Chloride 0.9% 100 ML IVPB SCH (02:00)
[2022-04-04 04:07] LABS: #Eosinphils 0.2 thou/uL (0.0-0.7); #Lymphocytes 1.3 thou/uL (1.20-3.40); #Monocytes 1.1 thou/uL (0.11-0.59); %Basophils 0.4 % (0.0-1.0); %Lymphocytes 17.2 % (21.0-51.0); %Monocytes 14.6 % (0.0-10.0); %Neutrophils 65.9 % (42.0-75.0); Hemoglobin 7.8 g/dL (14.0-18.0); Mean Corpuscular HGB CONC 31.7 g/dL (32.0-36.0); Mean Corpuscular Hemoglobin 30.3 pg (27.0-31.0); Mean Corpuscular Volume 95.7 fL (78.0-98.0); Mean Platelet Volume 8.4 fL (7.4-10.4); Platelet Count 198 thou/uL (130-400); Red Blood Cell (RBC) Count 2.56 mill/uL (4.70-6.10); White Blood Cell (WBC) Count 7.6 thou/uL (4.8-10.8)
[2022-04-04 04:31] LABS: Anion Gap 13 mmol/L (10-20); BUN (Urea Nitrogen) 12 mg/dL (8.4-25.7); Calc. Creatinine Clearance 76 mL/min (70-130); Calcium 8.2 mg/dL (7.8-10.44); Carbon Dioxide 30 mmol/L (23-31); Chloride 99 mmol/L (98-107); Estimated GFR 91; Glucose 150 mg/dL (83-110); Potassium 3.8 mmol/L (3.5-5.1); Sodium 138 mmol/L (136-145)
[2022-04-04] MEDS: Enoxaparin Sodium 40 MG/0.4 ML SYRINGE SC SCH (08:04)
[2022-04-04] MEDS ORDERED: Lidocaine 1% MPF 2 ML VIAL FS SCH (10:30)
[2022-04-04] MEDS: Meropenem 1 GM in Sodium Chloride 0.9% 100 ML IVPB SCH ×2 (11:10→18:18)
[2022-04-04 12:35] LABS: Pleural Fluid, Amylase Less than 30 U/L (Not Available); Pleural Fluid, Protein 3.2 g/dL
[2022-04-04 12:38] LABS: Pleural Fluid, Glucose 142 mg/dL; Pleural Fluid, LDH 483 U/L (Not Available)
[2022-04-04 14:03] LABS: RBC Count-Automated (BF) 117649 /cu.mm; WBC/Nucleated-Auto (BF) 1731 /cu.mm
[2022-04-04 14:04] LABS: Body Fluid Source Pleural Fluid
[2022-04-04 14:05] LABS: BF Color Red; Clarity Cloudy/Turbid (Clear); Tube # EDTA
[2022-04-04 14:06] LABS: BF Segmented Neutrophils 39 %; Cell Count Non Hematic 14 %; Eosinophils 9 %; Lymphocytes 36 %
[2022-04-04] MEDS ORDERED: Vancomycin 1 GM in Premix Bag 1 BAG IVPB SCH (21:00)
[2022-04-04] MEDS ORDERED: VANCOMYCIN 1.25 GM/250 ML BAG 1.25 GM in Premix Bag 1 BAG IVPB SCH (23:00)
[2022-04-05] MEDS: Ondansetron PF 4 MG/2 ML Vial IVP PRN ×2 (00:37→12:44)
[2022-04-05] MEDS: Acetaminophen 325 MG TAB PO PRN ×3 (00:38→21:35)
[2022-04-05] MEDS: Meropenem 1 GM in Sodium Chloride 0.9% 100 ML IVPB SCH ×3 (03:59→18:40)
[2022-04-05] MEDS: Enoxaparin Sodium 40 MG/0.4 ML SYRINGE SC SCH ×2 (08:03→08:21)
[2022-04-05] MEDS ORDERED: Benzonatate 100 MG CAP PO PRN (08:50)
[2022-04-05] MEDS ORDERED: Pregabalin 50 MG CAP PO SCH (09:00)
[2022-04-05 09:08] LABS: #Lymphocytes 0.8 thou/uL (1.20-3.40); #Monocytes 0.7 thou/uL (0.11-0.59); #Neutrophils 5.4 thou/uL (1.40-6.50); %Basophils 0.4 % (0.0-1.0); %Eosinophils 0.3 % (0.0-10.0); %Lymphocytes 12.1 % (21.0-51.0); %Monocytes 9.7 % (0.0-10.0); %Neutrophils 77.5 % (42.0-75.0); Hemoglobin 9.1 g/dL (14.0-18.0); Mean Corpuscular HGB CONC 31.7 g/dL (32.0-36.0); Mean Corpuscular Hemoglobin 30.2 pg (27.0-31.0); Mean Corpuscular Volume 95.1 fL (78.0-98.0); Platelet Count 188 thou/uL (130-400); Red Blood Cell (RBC) Count 3.02 mill/uL (4.70-6.10); White Blood Cell (WBC) Count 6.9 thou/uL (4.8-10.8)
[2022-04-05 09:30] LABS: Anion Gap 13 mmol/L (10-20); BUN (Urea Nitrogen) 13 mg/dL (8.4-25.7); Calc. Creatinine Clearance 78 mL/min (70-130); Calcium 8.4 mg/dL (7.8-10.44); Carbon Dioxide 26 mmol/L (23-31); Chloride 103 mmol/L (98-107); Estimated GFR 93; Glucose 210 mg/dL (83-110); Iron 27 ug/dL (65-175); Iron Binding Capacity, Total 120 mcg/dL (261-462); Potassium 3.8 mmol/L (3.5-5.1); Sodium 138 mmol/L (136-145)
[2022-04-05] MEDS ORDERED: Lidocaine 1% (PF) 30 ML VIAL IJ SCH (10:15)
[2022-04-05] MEDS: Pregabalin 75 MG CAP PO SCH ×3 (10:35→20:42)
[2022-04-05] MEDS: Lactated Ringer's 1,000 ML IV SCH (14:53)
[2022-04-05] MEDS: Simvastatin 10 MG TAB PO SCH (20:42)
[2022-04-05] MEDS: Metoprolol Tartrate 25 MG TAB PO SCH (20:43)
[2022-04-05] MEDS: Melatonin 3 MG TAB PO SCH (20:43)
[2022-04-05] MEDS: Mirtazapine 30 MG TAB PO SCH (20:43)
[2022-04-05] MEDS: Finasteride 5 MG TAB PO SCH (20:44)
[2022-04-05] MEDS ORDERED: Non-Formulary Item 1 EACH (Melatonin [Melatonin] 5 MG Capsule) PO SCH (21:00)
[2022-04-05] MEDS ORDERED: Pravastatin Sodium 20 MG TAB PO SCH (21:00)
[2022-04-05 22:28] LABS: Vancomycin, Trough 5.3 ug/mL
[2022-04-05] MEDS: Vancomycin 1 GM in Premix Bag 1 BAG IVPB SCH (23:04)
[2022-04-06] MEDS: Meropenem 1 GM in Sodium Chloride 0.9% 100 ML IVPB SCH ×3 (02:10→18:34)
[2022-04-06] MEDS: Lactated Ringer's 1,000 ML IV SCH ×2 (03:55→18:25)
[2022-04-06] MEDS ORDERED: fentaNYL Citrate/PF 100 MCG/2 ML SYRINGE ONE (07:08)
[2022-04-06] MEDS ORDERED: Lidocaine 1% MPF 2 ML VIAL ONE (07:43)
[2022-04-06] MEDS ORDERED: Ondansetron PF 4 MG/2 ML Vial ONE (08:46)
[2022-04-06] MEDS ORDERED: Dexamethasone 20 MG/5 ML VIAL ONE (08:46)
[2022-04-06] MEDS ORDERED: Neostigmine Methylsulfate 3 MG/3 ML SYRINGE ONE (08:46)
[2022-04-06] MEDS ORDERED: Vecuronium 10 MG VIAL ONE (08:46)
[2022-04-06] MEDS ORDERED: PROPOFOL 200 MG/20 ML VIAL ONE (08:46)
[2022-04-06] MEDS ORDERED: Glycopyrrolate 0.2 MG/ML 5 ML SYRINGE ONE (08:46)
[2022-04-06] MEDS ORDERED: Lidocaine 1% PF 5 ML VIAL ONE (08:46)
[2022-04-06] MEDS ORDERED: Bupivacaine/Epinephrine 0.25% 30 ML VIAL ONE (08:53)
[2022-04-06] MEDS: Metoprolol Tartrate 25 MG TAB PO SCH ×2 (09:57→20:53)
[2022-04-06] MEDS: Pregabalin 75 MG CAP PO SCH ×3 (09:57→20:52)
[2022-04-06] MEDS: Enoxaparin Sodium 40 MG/0.4 ML SYRINGE SC SCH (09:57)
[2022-04-06] MEDS ORDERED: Fentanyl 100 MCG/2 ML VIAL ONE ×2 (10:07→10:29)
[2022-04-06] MEDS: Vancomycin 1 GM in Premix Bag 1 BAG IVPB SCH ×2 (11:51→23:22)
[2022-04-06] MEDS: Morphine 4 MG/ML VIAL SLOW IVP PRN ×3 (13:55→23:29)
[2022-04-06] MEDS ORDERED: Fentanyl 100 MCG/2 ML VIAL SLOW IVP PRN (15:07)
[2022-04-06] MEDS: traMADol HCl 50 MG TAB PO PRN (20:51)
[2022-04-06] MEDS: Simvastatin 10 MG TAB PO SCH (20:52)
[2022-04-06] MEDS: Finasteride 5 MG TAB PO SCH (20:53)
[2022-04-06] MEDS: Mirtazapine 30 MG TAB PO SCH (20:54)
[2022-04-06] MEDS: Melatonin 3 MG TAB PO SCH (21:00)
[2022-04-07] MEDS: Lactated Ringer's 1,000 ML IV SCH (01:01)
[2022-04-07] MEDS: Meropenem 1 GM in Sodium Chloride 0.9% 100 ML IVPB SCH ×3 (02:02→18:13)
[2022-04-07] MEDS: traMADol HCl 50 MG TAB PO PRN ×3 (02:46→20:55)
[2022-04-07 03:53] LABS: #Lymphocytes 0.8 thou/uL (1.20-3.40); #Monocytes 0.4 thou/uL (0.11-0.59); #Neutrophils 6.8 thou/uL (1.40-6.50); %Basophils 0.1 % (0.0-1.0); %Monocytes 4.7 % (0.0-10.0); %Neutrophils 85.2 % (42.0-75.0); Hemoglobin 8.8 g/dL (14.0-18.0); Mean Corpuscular HGB CONC 33.3 g/dL (32.0-36.0); Mean Corpuscular Hemoglobin 31.1 pg (27.0-31.0); Mean Corpuscular Volume 93.5 fL (78.0-98.0); Platelet Count 230 thou/uL (130-400); RBC Distribution Width 12.6 % (11.5-14.5); Red Blood Cell (RBC) Count 2.83 mill/uL (4.70-6.10)
[2022-04-07 04:11] LABS: Anion Gap 12 mmol/L (10-20); BUN (Urea Nitrogen) 18 mg/dL (8.4-25.7); Calc. Creatinine Clearance 79 mL/min (70-130); Calcium 8.1 mg/dL (7.8-10.44); Carbon Dioxide 27 mmol/L (23-31); Chloride 104 mmol/L (98-107); Estimated GFR 93; Glucose 311 mg/dL (83-110); Potassium 4.2 mmol/L (3.5-5.1); Sodium 139 mmol/L (136-145)
[2022-04-07] MEDS: Morphine 4 MG/ML VIAL SLOW IVP PRN ×2 (05:07→12:58)
[2022-04-07] MEDS: Metoprolol Tartrate 25 MG TAB PO SCH ×2 (09:06→20:59)
[2022-04-07] MEDS: Polyethylene Glycol 3350 17 GM Packet PO SCH (09:07)
[2022-04-07] MEDS: Enoxaparin Sodium 40 MG/0.4 ML SYRINGE SC SCH (09:07)
[2022-04-07] MEDS: Pregabalin 75 MG CAP PO SCH ×3 (09:07→20:57)
[2022-04-07] MEDS: Acetaminophen 325 MG TAB PO PRN (11:10)
[2022-04-07] MEDS: Vancomycin 1 GM in Premix Bag 1 BAG IVPB SCH ×2 (11:50→22:53)
[2022-04-07] MEDS: Ondansetron PF 4 MG/2 ML Vial IVP PRN (16:11)
[2022-04-07] MEDS: Mirtazapine 30 MG TAB PO SCH (20:58)
[2022-04-07] MEDS: Finasteride 5 MG TAB PO SCH (20:58)
[2022-04-07] MEDS: Melatonin 3 MG TAB PO SCH (20:58)
[2022-04-07] MEDS: Simvastatin 10 MG TAB PO SCH (20:58)
[2022-04-07 22:56] LABS: Vancomycin, Trough 13.9 ug/mL
[2022-04-08] MEDS: Meropenem 1 GM in Sodium Chloride 0.9% 100 ML IVPB SCH ×3 (03:11→19:16)
[2022-04-08] MEDS: Acetaminophen 325 MG TAB PO PRN ×2 (03:11→21:27)
[2022-04-08] MEDS: Pregabalin 75 MG CAP PO SCH ×3 (09:55→21:26)
[2022-04-08] MEDS: Enoxaparin Sodium 40 MG/0.4 ML SYRINGE SC SCH (09:55)
[2022-04-08] MEDS: Metoprolol Tartrate 25 MG TAB PO SCH ×2 (09:56→21:26)
[2022-04-08] MEDS: Polyethylene Glycol 3350 17 GM Packet PO SCH (09:57)
[2022-04-08] MEDS: Ondansetron PF 4 MG/2 ML Vial IVP PRN (12:05)
[2022-04-08] MEDS ORDERED: Dextrose 50% Abboject 50 ML SYRINGE SLOW IVP PRN (14:57)
[2022-04-08] MEDS ORDERED: Dextrose 5% in Water 1,000 ML IV PRN (14:57)
[2022-04-08] MEDS ORDERED: Amlodipine 5 MG TAB PO SCH (21:00)
[2022-04-08] MEDS ORDERED: Hydrochlorothiazide 25 MG TAB PO SCH (21:00)
[2022-04-08] MEDS: Finasteride 5 MG TAB PO SCH (21:26)
[2022-04-08] MEDS: Simvastatin 10 MG TAB PO SCH (21:26)
[2022-04-08] MEDS: Mirtazapine 30 MG TAB PO SCH (21:27)
[2022-04-08] MEDS: Melatonin 3 MG TAB PO SCH (21:27)
[2022-04-09] MEDS: Meropenem 1 GM in Sodium Chloride 0.9% 100 ML IVPB SCH ×3 (02:53→18:02)
[2022-04-09 05:32] LABS: #Eosinphils 0.2 thou/uL (0.0-0.7); #Lymphocytes 1.5 thou/uL (1.20-3.40); #Monocytes 0.5 thou/uL (0.11-0.59); #Neutrophils 3.7 thou/uL (1.40-6.50); %Basophils 0.3 % (0.0-1.0); %Eosinophils 3.1 % (0.0-10.0); %Lymphocytes 25.7 % (21.0-51.0); %Monocytes 8.3 % (0.0-10.0); %Neutrophils 62.6 % (42.0-75.0); Hemoglobin 7.5 g/dL (14.0-18.0); Mean Corpuscular HGB CONC 31.6 g/dL (32.0-36.0); Mean Corpuscular Hemoglobin 29.9 pg (27.0-31.0); Mean Corpuscular Volume 94.6 fL (78.0-98.0); Mean Platelet Volume 7.7 fL (7.4-10.4); Platelet Count 282 thou/uL (130-400); RBC Distribution Width 13.2 % (11.5-14.5); Red Blood Cell (RBC) Count 2.52 mill/uL (4.70-6.10)
[2022-04-09 05:53] LABS: Anion Gap 12 mmol/L (10-20); BUN (Urea Nitrogen) 14 mg/dL (8.4-25.7); Calc. Creatinine Clearance 84 mL/min (70-130); Calcium 8.2 mg/dL (7.8-10.44); Carbon Dioxide 30 mmol/L (23-31); Chloride 104 mmol/L (98-107); Estimated GFR 95; Glucose 139 mg/dL (83-110); Potassium 3.6 mmol/L (3.5-5.1); Sodium 142 mmol/L (136-145)
[2022-04-09] MEDS ORDERED: Lidocaine 1% PF 5 ML VIAL ONE (10:17)
[2022-04-09] MEDS ORDERED: PROPOFOL 200 MG/20 ML VIAL ONE (10:17)
[2022-04-09] MEDS ORDERED: Pantoprazole 40 MG VIAL IVP SCH (11:45)
[2022-04-09] MEDS: Pregabalin 75 MG CAP PO SCH ×3 (12:58→22:04)
[2022-04-09] MEDS: Enoxaparin Sodium 40 MG/0.4 ML SYRINGE SC SCH (12:58)
[2022-04-09] MEDS: Polyethylene Glycol 3350 17 GM Packet PO SCH (13:00)
[2022-04-09] MEDS: Metoprolol Tartrate 25 MG TAB PO SCH ×2 (13:00→22:03)
[2022-04-09] MEDS ORDERED: Electrolyte Replacement Protocol 1 EACH FS SCH (17:45)
[2022-04-09] MEDS: Simvastatin 10 MG TAB PO SCH (22:02)
[2022-04-09] MEDS: Mirtazapine 30 MG TAB PO SCH (22:02)
[2022-04-09] MEDS: Pantoprazole 40 MG VIAL IVP SCH (22:02)
[2022-04-09] MEDS: Finasteride 5 MG TAB PO SCH (22:03)
[2022-04-09] MEDS: Cholecalciferol 1,000 UNITS (25 MCG) TAB PO SCH (22:03)
[2022-04-09] MEDS: Melatonin 3 MG TAB PO SCH (22:04)
[2022-04-10] MEDS: Meropenem 1 GM in Sodium Chloride 0.9% 100 ML IVPB SCH ×3 (01:39→16:57)
[2022-04-10 05:32] LABS: #Eosinphils 0.2 thou/uL (0.0-0.7); #Monocytes 0.7 thou/uL (0.11-0.59); #Neutrophils 3.5 thou/uL (1.40-6.50); %Basophils 0.4 % (0.0-1.0); %Eosinophils 2.9 % (0.0-10.0); %Lymphocytes 31.5 % (21.0-51.0); %Monocytes 10.5 % (0.0-10.0); %Neutrophils 54.7 % (42.0-75.0); Hemoglobin 7.9 g/dL (14.0-18.0); Mean Corpuscular HGB CONC 33.5 g/dL (32.0-36.0); Mean Corpuscular Hemoglobin 31.5 pg (27.0-31.0); Mean Corpuscular Volume 94.1 fL (78.0-98.0); Mean Platelet Volume 7.6 fL (7.4-10.4); Platelet Count 331 thou/uL (130-400); RBC Distribution Width 13.2 % (11.5-14.5); Red Blood Cell (RBC) Count 2.51 mill/uL (4.70-6.10); White Blood Cell (WBC) Count 6.4 thou/uL (4.8-10.8)
[2022-04-10 05:53] LABS: Phosphorus 2.1 mg/dL (2.3-4.7)
[2022-04-10 05:56] LABS: Anion Gap 10 mmol/L (10-20); BUN (Urea Nitrogen) 9 mg/dL (8.4-25.7); Calc. Creatinine Clearance 89 mL/min (70-130); Calcium 8.1 mg/dL (7.8-10.44); Carbon Dioxide 29 mmol/L (23-31); Chloride 104 mmol/L (98-107); Estimated GFR 96; Glucose 142 mg/dL (83-110); Magnesium 2.1 mg/dL (1.6-2.6); Potassium 3.5 mmol/L (3.5-5.1); Sodium 139 mmol/L (136-145)
[2022-04-10] MEDS ORDERED: Potassium Chloride 20 MEQ TAB PO SCH (08:00)
[2022-04-10] MEDS: Pantoprazole 40 MG VIAL IVP SCH ×2 (09:25→20:45)
[2022-04-10] MEDS: Polyethylene Glycol 3350 17 GM Packet PO SCH (09:25)
[2022-04-10] MEDS: Enoxaparin Sodium 40 MG/0.4 ML SYRINGE SC SCH (09:25)
[2022-04-10] MEDS: Folic Acid 1 MG TAB PO SCH (09:25)
[2022-04-10] MEDS: Pregabalin 75 MG CAP PO SCH ×3 (09:26→20:44)
[2022-04-10] MEDS: Cyanocobalamin (Vitamin B-12) 1,000 MCG TAB PO SCH (09:26)
[2022-04-10] MEDS: Multivit, Therapeutic 1 TAB PO SCH (09:26)
[2022-04-10] MEDS: Metoprolol Tartrate 25 MG TAB PO SCH ×2 (09:26→20:42)
[2022-04-10] MEDS: pyridOXINE 50 MG (B6) TAB PO SCH (09:27)
[2022-04-10] MEDS: Saccharomyces boulardii 250 MG CAP PO SCH (09:27)
[2022-04-10] MEDS: Fluconazole In NaCl,Iso-Osm 100 MG in Admixture Fee 2 EACH IVPB SCH (09:44)
[2022-04-10] MEDS: PHOS-NAK 1 PKT PACK PO SCH (16:57)
[2022-04-10] MEDS: Cholecalciferol 1,000 UNITS (25 MCG) TAB PO SCH (20:38)
[2022-04-10] MEDS: Finasteride 5 MG TAB PO SCH (20:40)
[2022-04-10] MEDS: Melatonin 3 MG TAB PO SCH (20:41)
[2022-04-10] MEDS: Mirtazapine 30 MG TAB PO SCH (20:43)
[2022-04-10] MEDS: Simvastatin 10 MG TAB PO SCH (20:44)
[2022-04-11] MEDS: Meropenem 1 GM in Sodium Chloride 0.9% 100 ML IVPB SCH ×3 (01:59→18:28)
[2022-04-11] MEDS: HumaLOG 300 UNITS/3 ML VIAL SC PRN (06:14)
[2022-04-11 06:30] LABS: #Eosinphils 0.4 thou/uL (0.0-0.7); #Lymphocytes 2.2 thou/uL (1.20-3.40); #Monocytes 0.7 thou/uL (0.11-0.59); #Neutrophils 3.7 thou/uL (1.40-6.50); %Basophils 0.4 % (0.0-1.0); %Eosinophils 5.3 % (0.0-10.0); %Lymphocytes 31.7 % (21.0-51.0); %Monocytes 10.1 % (0.0-10.0); %Neutrophils 52.5 % (42.0-75.0); Hemoglobin 7.9 g/dL (14.0-18.0); Mean Corpuscular HGB CONC 31.9 g/dL (32.0-36.0); Mean Corpuscular Hemoglobin 29.8 pg (27.0-31.0); Mean Corpuscular Volume 93.6 fL (78.0-98.0); Mean Platelet Volume 7.5 fL (7.4-10.4); Platelet Count 398 thou/uL (130-400); Red Blood Cell (RBC) Count 2.63 mill/uL (4.70-6.10)
[2022-04-11 06:50] LABS: Phosphorus 2.7 mg/dL (2.3-4.7)
[2022-04-11 06:52] LABS: Anion Gap 11 mmol/L (10-20); BUN (Urea Nitrogen) 10 mg/dL (8.4-25.7); Calc. Creatinine Clearance 87 mL/min (70-130); Calcium 8.1 mg/dL (7.8-10.44); Carbon Dioxide 26 mmol/L (23-31); Chloride 106 mmol/L (98-107); Estimated GFR 96; Glucose 164 mg/dL (83-110); Potassium 3.9 mmol/L (3.5-5.1); Sodium 139 mmol/L (136-145)
[2022-04-11] MEDS: Fluconazole In NaCl,Iso-Osm 100 MG in Admixture Fee 2 EACH IVPB SCH (09:01)
[2022-04-11] MEDS: Pantoprazole 40 MG VIAL IVP SCH ×2 (09:08→20:09)
[2022-04-11] MEDS: Pregabalin 75 MG CAP PO SCH ×3 (09:08→20:09)
[2022-04-11] MEDS: Saccharomyces boulardii 250 MG CAP PO SCH (09:09)
[2022-04-11] MEDS: Cyanocobalamin (Vitamin B-12) 1,000 MCG TAB PO SCH (09:09)
[2022-04-11] MEDS: Folic Acid 1 MG TAB PO SCH (09:09)
[2022-04-11] MEDS: Metoprolol Tartrate 25 MG TAB PO SCH ×2 (09:09→20:09)
[2022-04-11] MEDS: pyridOXINE 50 MG (B6) TAB PO SCH (09:10)
[2022-04-11] MEDS: PHOS-NAK 1 PKT PACK PO SCH ×2 (09:10→17:27)
[2022-04-11] MEDS: Multivit, Therapeutic 1 TAB PO SCH (09:10)
[2022-04-11] MEDS: Enoxaparin Sodium 40 MG/0.4 ML SYRINGE SC SCH (09:12)
[2022-04-11] MEDS: Polyethylene Glycol 3350 17 GM Packet PO SCH (10:45)
[2022-04-11] MEDS ORDERED: Multivitamins, Adult 10 ML, Folic Acid 1 MG, Thiamine HCl 100 MG in Dextrose 5 %-0.45 %... IV SCH (16:00)
[2022-04-11] MEDS: Finasteride 5 MG TAB PO SCH (20:09)
[2022-04-11] MEDS: Melatonin 3 MG TAB PO SCH (20:09)
[2022-04-11] MEDS: Cholecalciferol 1,000 UNITS (25 MCG) TAB PO SCH (20:09)
[2022-04-11] MEDS: Mirtazapine 30 MG TAB PO SCH (20:09)
[2022-04-11] MEDS: Simvastatin 10 MG TAB PO SCH (20:10)
[2022-04-12] MEDS: Meropenem 1 GM in Sodium Chloride 0.9% 100 ML IVPB SCH ×3 (02:02→19:49)
[2022-04-12 05:33] LABS: #Eosinphils 0.4 thou/uL (0.0-0.7); #Lymphocytes 2.7 thou/uL (1.20-3.40); #Monocytes 0.9 thou/uL (0.11-0.59); %Basophils 0.2 % (0.0-1.0); %Eosinophils 5.1 % (0.0-10.0); %Lymphocytes 33.9 % (21.0-51.0); %Monocytes 11.6 % (0.0-10.0); %Neutrophils 49.3 % (42.0-75.0); Hemoglobin 8.2 g/dL (14.0-18.0); Mean Corpuscular HGB CONC 32.2 g/dL (32.0-36.0); Mean Corpuscular Hemoglobin 30.1 pg (27.0-31.0); Mean Corpuscular Volume 93.5 fL (78.0-98.0); Mean Platelet Volume 7.1 fL (7.4-10.4); Platelet Count 446 thou/uL (130-400); RBC Distribution Width 14.2 % (11.5-14.5); Red Blood Cell (RBC) Count 2.73 mill/uL (4.70-6.10)
[2022-04-12 05:43] LABS: Phosphorus 2.6 mg/dL (2.3-4.7)
[2022-04-12 05:45] LABS: Anion Gap 8 mmol/L (10-20); BUN (Urea Nitrogen) 12 mg/dL (8.4-25.7); Calc. Creatinine Clearance 76 mL/min (70-130); Calcium 8.3 mg/dL (7.8-10.44); Carbon Dioxide 30 mmol/L (23-31); Chloride 104 mmol/L (98-107); Estimated GFR 93; Glucose 155 mg/dL (83-110); Sodium 138 mmol/L (136-145)
[2022-04-12] MEDS: Metoprolol Tartrate 25 MG TAB PO SCH ×2 (10:07→20:56)
[2022-04-12] MEDS: pyridOXINE 50 MG (B6) TAB PO SCH (10:07)
[2022-04-12] MEDS: Multivit, Therapeutic 1 TAB PO SCH (10:07)
[2022-04-12] MEDS: Cyanocobalamin (Vitamin B-12) 1,000 MCG TAB PO SCH (10:07)
[2022-04-12] MEDS: PHOS-NAK 1 PKT PACK PO SCH ×2 (10:07→19:03)
[2022-04-12] MEDS: Pregabalin 75 MG CAP PO SCH ×3 (10:08→20:56)
[2022-04-12] MEDS: Folic Acid 1 MG TAB PO SCH (10:08)
[2022-04-12] MEDS: Enoxaparin Sodium 40 MG/0.4 ML SYRINGE SC SCH (10:09)
[2022-04-12] MEDS: Saccharomyces boulardii 250 MG CAP PO SCH (10:09)
[2022-04-12] MEDS: Fluconazole In NaCl,Iso-Osm 100 MG in Admixture Fee 2 EACH IVPB SCH (10:14)
[2022-04-12] MEDS: Polyethylene Glycol 3350 17 GM Packet PO SCH (10:44)
[2022-04-12] MEDS: Pantoprazole 40 MG VIAL IVP SCH ×2 (10:46→20:56)
[2022-04-12] MEDS: HumaLOG 300 UNITS/3 ML VIAL SC PRN (19:03)
[2022-04-12] MEDS: Mirtazapine 30 MG TAB PO SCH (20:56)
[2022-04-12] MEDS: Finasteride 5 MG TAB PO SCH (20:56)
[2022-04-12] MEDS: Cholecalciferol 1,000 UNITS (25 MCG) TAB PO SCH (20:56)
[2022-04-12] MEDS: Melatonin 3 MG TAB PO SCH (20:56)
[2022-04-12] MEDS: Simvastatin 10 MG TAB PO SCH (20:57)
[2022-04-13] MEDS: Meropenem 1 GM in Sodium Chloride 0.9% 100 ML IVPB SCH ×3 (01:53→18:24)
[2022-04-13] MEDS: pyridOXINE 50 MG (B6) TAB PO SCH (08:34)
[2022-04-13] MEDS: Multivit, Therapeutic 1 TAB PO SCH (08:34)
[2022-04-13] MEDS: Folic Acid 1 MG TAB PO SCH (08:35)
[2022-04-13] MEDS: Pregabalin 75 MG CAP PO SCH ×3 (08:35→20:23)
[2022-04-13] MEDS: PHOS-NAK 1 PKT PACK PO SCH ×2 (08:36→17:51)
[2022-04-13] MEDS: Saccharomyces boulardii 250 MG CAP PO SCH (08:36)
[2022-04-13] MEDS: Cyanocobalamin (Vitamin B-12) 1,000 MCG TAB PO SCH (08:36)
[2022-04-13] MEDS: Metoprolol Tartrate 25 MG TAB PO SCH ×2 (08:36→20:22)
[2022-04-13] MEDS: Polyethylene Glycol 3350 17 GM Packet PO SCH (08:37)
[2022-04-13] MEDS: Pantoprazole 40 MG VIAL IVP SCH ×2 (08:39→20:24)
[2022-04-13 08:42] VITALS: BMI 18.5
[2022-04-13] MEDS: Enoxaparin Sodium 40 MG/0.4 ML SYRINGE SC SCH (09:00)
[2022-04-13] MEDS ORDERED: PROPOFOL 200 MG/20 ML VIAL ONE (11:30)
[2022-04-13] MEDS: Acetaminophen 325 MG TAB PO PRN (20:21)
[2022-04-13] MEDS: traMADol HCl 50 MG TAB PO PRN (20:21)
[2022-04-13] MEDS: Cholecalciferol 1,000 UNITS (25 MCG) TAB PO SCH (20:22)
[2022-04-13] MEDS: Finasteride 5 MG TAB PO SCH (20:22)
[2022-04-13] MEDS: Mirtazapine 30 MG TAB PO SCH (20:22)
[2022-04-13] MEDS: Melatonin 3 MG TAB PO SCH (20:22)
[2022-04-13] MEDS: Simvastatin 10 MG TAB PO SCH (20:23)
[2022-04-14] MEDS: Meropenem 1 GM in Sodium Chloride 0.9% 100 ML IVPB SCH ×3 (02:20→17:13)
[2022-04-14] MEDS: traMADol HCl 50 MG TAB PO PRN ×2 (02:25→09:00)
[2022-04-14 06:08] LABS: #Basophils 0.1 thou/uL (0.0-0.2); #Eosinphils 0.5 thou/uL (0.0-0.7); #Lymphocytes 2.4 thou/uL (1.20-3.40); #Monocytes 1.1 thou/uL (0.11-0.59); #Neutrophils 3.3 thou/uL (1.40-6.50); %Basophils 0.7 % (0.0-1.0); %Eosinophils 6.8 % (0.0-10.0); %Monocytes 14.9 % (0.0-10.0); %Neutrophils 44.5 % (42.0-75.0); Mean Corpuscular HGB CONC 31.9 g/dL (32.0-36.0); Mean Corpuscular Hemoglobin 30.2 pg (27.0-31.0); Mean Corpuscular Volume 94.4 fL (78.0-98.0); Mean Platelet Volume 7.3 fL (7.4-10.4); Platelet Count 470 thou/uL (130-400); RBC Distribution Width 14.2 % (11.5-14.5); Red Blood Cell (RBC) Count 2.97 mill/uL (4.70-6.10); White Blood Cell (WBC) Count 7.3 thou/uL (4.8-10.8)
[2022-04-14 06:18] LABS: Anion Gap 12 mmol/L (10-20); BUN (Urea Nitrogen) 13 mg/dL (8.4-25.7); Calc. Creatinine Clearance 76 mL/min (70-130); Calcium 8.2 mg/dL (7.8-10.44); Carbon Dioxide 29 mmol/L (23-31); Chloride 101 mmol/L (98-107); Estimated GFR 94; Glucose 155 mg/dL (83-110); Magnesium 2.1 mg/dL (1.6-2.6); Phosphorus 2.5 mg/dL (2.3-4.7); Potassium 3.8 mmol/L (3.5-5.1); Sodium 138 mmol/L (136-145)
[2022-04-14] MEDS: HumaLOG 300 UNITS/3 ML VIAL SC PRN ×3 (06:49→17:50)
[2022-04-14] MEDS: Polyethylene Glycol 3350 17 GM Packet PO SCH (09:01)
[2022-04-14] MEDS: Folic Acid 1 MG TAB PO SCH (09:02)
[2022-04-14] MEDS: Pregabalin 75 MG CAP PO SCH ×3 (09:02→21:09)
[2022-04-14] MEDS: Saccharomyces boulardii 250 MG CAP PO SCH (09:02)
[2022-04-14] MEDS: pyridOXINE 50 MG (B6) TAB PO SCH (09:02)
[2022-04-14] MEDS: Multivit, Therapeutic 1 TAB PO SCH (09:02)
[2022-04-14] MEDS: Cyanocobalamin (Vitamin B-12) 1,000 MCG TAB PO SCH (09:02)
[2022-04-14] MEDS: PHOS-NAK 1 PKT PACK PO SCH ×2 (09:03→17:13)
[2022-04-14] MEDS: Enoxaparin Sodium 40 MG/0.4 ML SYRINGE SC SCH (09:03)
[2022-04-14] MEDS: Pantoprazole 40 MG VIAL IVP SCH ×2 (09:03→21:09)
[2022-04-14] MEDS: Metoprolol Tartrate 25 MG TAB PO SCH ×2 (09:03→20:59)
[2022-04-14 16:37] LABS: A. flavus Negative (Neg:<1:1); A. fumigatus Negative (Neg:<1:1); A. niger Negative (Neg:<1:1); Blastomyces AB Negative (Neg:<1:1)
[2022-04-14] MEDS: Melatonin 3 MG TAB PO SCH (20:59)
[2022-04-14] MEDS: Cholecalciferol 1,000 UNITS (25 MCG) TAB PO SCH (21:01)
[2022-04-14] MEDS: Finasteride 5 MG TAB PO SCH (21:08)
[2022-04-14] MEDS: Mirtazapine 30 MG TAB PO SCH (21:08)
[2022-04-14] MEDS: Simvastatin 10 MG TAB PO SCH (21:09)
[2022-04-15] MEDS: Meropenem 1 GM in Sodium Chloride 0.9% 100 ML IVPB SCH ×3 (02:11→17:05)
[2022-04-15] MEDS: HumaLOG 300 UNITS/3 ML VIAL SC PRN ×2 (06:57→12:32)
[2022-04-15] MEDS: Folic Acid 1 MG TAB PO SCH (08:55)
[2022-04-15] MEDS: Metoprolol Tartrate 25 MG TAB PO SCH (08:56)
[2022-04-15] MEDS: pyridOXINE 50 MG (B6) TAB PO SCH (08:57)
[2022-04-15] MEDS: Saccharomyces boulardii 250 MG CAP PO SCH (08:57)
[2022-04-15] MEDS: Cyanocobalamin (Vitamin B-12) 1,000 MCG TAB PO SCH (08:58)
[2022-04-15] MEDS: Multivit, Therapeutic 1 TAB PO SCH (08:58)
[2022-04-15] MEDS: Pregabalin 75 MG CAP PO SCH ×2 (09:00→15:39)
[2022-04-15] MEDS: Polyethylene Glycol 3350 17 GM Packet PO SCH (09:01)
[2022-04-15] MEDS: PHOS-NAK 1 PKT PACK PO SCH ×2 (09:01→15:39)
[2022-04-15] MEDS: Enoxaparin Sodium 40 MG/0.4 ML SYRINGE SC SCH (09:01)
[2022-04-15] MEDS: Pantoprazole 40 MG VIAL IVP SCH (09:02)
[2022-04-15 20:53] VITALS: BP 108/57; TEMP 98.7
== END 2022-04-15 20:10 | DRG 853 ==
LOC: ERS 20:56 → IMCU/EMU 23:54 → SJJU 04-07 17:35
PROVIDERS: ADMIT Family Medicine; ATTEND Family Medicine
PROC: 3E03329 Introduction of Other Anti-infective into Peripheral Vein, Percutaneous Approach (ICD-10-PCS; 2022-04-03)
PROC: 0W9B3ZZ Drainage of Left Pleural Cavity, Percutaneous Approach (ICD-10-PCS; 2022-04-04)
PROC: 0BNG4ZZ Release Left Upper Lung Lobe, Percutaneous Endoscopic Approach (ICD-10-PCS; principal; 2022-04-06)
PROC: 0BNJ4ZZ Release Left Lower Lung Lobe, Percutaneous Endoscopic Approach (ICD-10-PCS; 2022-04-06)
PROC: 0BBP4ZX Excision of Left Pleura, Percutaneous Endoscopic Approach, Diagnostic (ICD-10-PCS; 2022-04-06)
PROC: 0DB98ZX Excision of Duodenum, Via Natural or Artificial Opening Endoscopic, Diagnostic (ICD-10-PCS; 2022-04-09)
PROC: 0DB68ZX Excision of Stomach, Via Natural or Artificial Opening Endoscopic, Diagnostic (ICD-10-PCS; 2022-04-09)
PROC: 0DB38ZX Excision of Lower Esophagus, Via Natural or Artificial Opening Endoscopic, Diagnostic (ICD-10-PCS; 2022-04-09)
PROC: 0D758ZZ Dilation of Esophagus, Via Natural or Artificial Opening Endoscopic (ICD-10-PCS; 2022-04-09)
PROC: 0DH63UZ Insertion of Feeding Device into Stomach, Percutaneous Approach (ICD-10-PCS; 2022-04-13)
DX: A41.9 Sepsis, unspecified organism (principal); G93.41 Metabolic encephalopathy; J85.0 Gangrene and necrosis of lung; J96.01 Acute respiratory failure with hypoxia; R64 Cachexia; J91.8 Pleural effusion in other conditions classified elsewhere; B37.81 Candidal esophagitis; Z68.1 Body mass index [BMI] 19.9 or less, adult; E44.0 Moderate protein-calorie malnutrition; Z20.822 Contact with and (suspected) exposure to COVID-19; R65.20 Severe sepsis without septic shock; K26.9 Duodenal ulcer, unspecified as acute or chronic, without hemorrhage or perforation; D63.8 Anemia in other chronic diseases classified elsewhere; E11.9 Type 2 diabetes mellitus without complications; I10 Essential (primary) hypertension; E78.5 Hyperlipidemia, unspecified; R13.12 Dysphagia, oropharyngeal phase; F03.90 Unspecified dementia, unspecified severity, without behavioral disturbance, psychotic disturbance, mood disturbance, and anxiety; Z96.642 Presence of left artificial hip joint; E89.0 Postprocedural hypothyroidism; R63.0 Anorexia; G47.33 Obstructive sleep apnea (adult) (pediatric); Z96.659 Presence of unspecified artificial knee joint; K21.9 Gastro-esophageal reflux disease without esophagitis; I49.1 Atrial premature depolarization; I49.3 Ventricular premature depolarization; Z28.21 Immunization not carried out because of patient refusal; Z86.16 Personal history of COVID-19; Z87.01 Personal history of pneumonia (recurrent); Z79.899 Other long term (current) drug therapy; Z98.890 Other specified postprocedural states; Z86.010 Personal history of colon polyps
CPT/HCPCS: 36415; 36416; 70450; 71045; 74230; 80048; 80053; 80202; 81003; 82150; 82274; 82728; 82805; 82945; 83540; 83550; 83605; 83615; 83735; 84100; 84145; 84157; 84478; 84484; 85025; 85060; 86140; 86606; 86612; 86850; 86900; 86901; 87040; 87070; 87086; 87116; 87205; 87206; 87324; 87385; 87449; 88112; 88305; 88312; 88342; 89051; 93005; 96365; 96366; 96367; 96368; C9113; J0692; J1100; J1450; J1642; J1650; J1815; J1956; J2185; J2270; J2405; J2704; J3010; J3370; J3411; J3490; J7030; J7042; J7120; U0002; U0003; U0005

== ENCOUNTER 2022-05-10 10:24 | Outpatient (CLI) | payer MEDICARE, BC | END 2022-05-10 10:25 | disposition home or self-care (01) | LOC: BICCT 10:24 | PROVIDERS: ATTEND Internal Medicine Pulmonary Disease | DX: R91.8 Other nonspecific abnormal finding of lung field (principal); J98.11 Atelectasis; J90 Pleural effusion, not elsewhere classified; J98.4 Other disorders of lung; Z87.01 Personal history of pneumonia (recurrent) | CPT/HCPCS: 71250 ==

== ENCOUNTER 2022-05-11 09:48 | Inpatient (IN) | payer MEDICARE, BC ==
[~2022-05-11 09:48] MED LIST changes: -Heparin 1,000 UNITS/ML VIAL ONE; +Iopamidol-370 76% 500 ML 1 ML ONE
[2022-05-11 11:02] LABS: #Lymphocytes 1.6 thou/uL (1.20-3.40); #Monocytes 0.5 thou/uL (0.11-0.59); #Neutrophils 6.8 thou/uL (1.40-6.50); %Basophils 0.5 % (0.0-1.0); %Eosinophils 0.4 % (0.0-10.0); %Lymphocytes 17.9 % (21.0-51.0); %Monocytes 5.9 % (0.0-10.0); %Neutrophils 75.4 % (42.0-75.0); Hemoglobin 10.2 g/dL (14.0-18.0); Mean Corpuscular HGB CONC 31.4 g/dL (32.0-36.0); Mean Corpuscular Hemoglobin 29.5 pg (27.0-31.0); Platelet Count 296 thou/uL (130-400); RBC Distribution Width 15.6 % (11.5-14.5); Red Blood Cell (RBC) Count 3.45 mill/uL (4.70-6.10)
[2022-05-11 11:21] LABS: ALT (SGPT) 18 U/L (8-55); AST (SGOT) 15 U/L (5-34); Albumin 3.6 g/dL (3.4-4.8); Alkaline Phosphatase 101 U/L (40-110); Anion Gap 9 mmol/L (10-20); BUN (Urea Nitrogen) 22 mg/dL (8.4-25.7); Bilirubin, Total 0.5 mg/dL (0.2-1.2); Calc. Creatinine Clearance 0 mL/min (70-130); Calcium 9.5 mg/dL (7.8-10.44); Carbon Dioxide 34 mmol/L (23-31); Chloride 103 mmol/L (98-107); Estimated GFR 91; Glucose 186 mg/dL (83-110); Potassium 3.6 mmol/L (3.5-5.1); Protein, Total 6.6 g/dL (5.8-8.1); Sodium 142 mmol/L (136-145)
[2022-05-11] MEDS ORDERED: Pantoprazole 40 MG VIAL ONE (13:44)
[2022-05-11] MEDS ORDERED: Ondansetron PF 4 MG/2 ML Vial IVP PRN (14:51)
[2022-05-11] MEDS ORDERED: Benzonatate 100 MG CAP PO PRN (17:10)
[2022-05-11] MEDS ORDERED: Dextrose 5% in Water 1,000 ML IV PRN (17:10)
[2022-05-11] MEDS ORDERED: Dextrose 50% Abboject 50 ML SYRINGE SLOW IVP PRN (17:10)
[2022-05-11] MEDS ORDERED: HumaLOG 300 UNITS/3 ML VIAL SC PRN (17:10)
[2022-05-11] MEDS ORDERED: Acetaminophen/Codeine 30-300mg Tablet PO PRN (17:10)
[2022-05-11] MEDS ORDERED: Ondansetron ODT 4 MG TAB PO PRN (17:10)
[2022-05-11] MEDS ORDERED: hydrALAZINE 20 MG/ML VIAL SLOW IVP PRN (17:43)
[2022-05-11] MEDS: Lactated Ringer's 1,000 ML IV SCH (17:45)
[2022-05-11] MEDS ORDERED: Famotidine/PF 20 mg/2ml Vial SLOW IVP SCH (21:00)
[2022-05-11] MEDS ORDERED: Melatonin 3 MG TAB PO SCH (21:00)
[2022-05-11] MEDS: Pantoprazole 40 MG VIAL IVP SCH (21:33)
[2022-05-11] MEDS: Amlodipine 5 MG TAB PO SCH (22:09)
[2022-05-11] MEDS: Hydrochlorothiazide 25 MG TAB PO SCH (22:10)
[2022-05-11] MEDS: Mirtazapine 30 MG TAB PO SCH (22:10)
[2022-05-11] MEDS: Pregabalin 75 MG CAP PO SCH (22:10)
[2022-05-11] MEDS: Simvastatin 10 MG TAB PO SCH (22:11)
[2022-05-12] MEDS: Lactated Ringer's 1,000 ML IV SCH ×3 (02:46→20:40)
[2022-05-12 06:50] LABS: #Eosinphils 0.2 thou/uL (0.0-0.7); #Monocytes 0.7 thou/uL (0.11-0.59); #Neutrophils 4.7 thou/uL (1.40-6.50); %Basophils 0.6 % (0.0-1.0); %Eosinophils 2.2 % (0.0-10.0); %Lymphocytes 26.4 % (21.0-51.0); %Monocytes 8.8 % (0.0-10.0); %Neutrophils 61.9 % (42.0-75.0); Hemoglobin 9.7 g/dL (14.0-18.0); Mean Corpuscular HGB CONC 32.1 g/dL (32.0-36.0); Mean Corpuscular Hemoglobin 30.4 pg (27.0-31.0); Mean Corpuscular Volume 94.6 fL (78.0-98.0); Mean Platelet Volume 8.3 fL (7.4-10.4); Platelet Count 286 thou/uL (130-400); RBC Distribution Width 15.3 % (11.5-14.5); Red Blood Cell (RBC) Count 3.21 mill/uL (4.70-6.10); White Blood Cell (WBC) Count 7.6 thou/uL (4.8-10.8)
[2022-05-12 07:16] LABS: Anion Gap 12 mmol/L (10-20); Calc. Creatinine Clearance 85 mL/min (70-130); Carbon Dioxide 27 mmol/L (23-31); Chloride 108 mmol/L (98-107); Estimated GFR 97; Glucose 111 mg/dL (83-110); Potassium 3.4 mmol/L (3.5-5.1); Sodium 144 mmol/L (136-145)
[2022-05-12 08:02] LABS: BUN (Urea Nitrogen) 16 mg/dL (8.4-25.7)
[2022-05-12] MEDS: Pantoprazole 40 MG VIAL IVP SCH ×2 (09:32→20:39)
[2022-05-12] MEDS: Enoxaparin Sodium 40 MG/0.4 ML SYRINGE SC SCH ×2 (12:10→14:33)
[2022-05-12] MEDS: Acetaminophen/Codeine 30-300mg Tablet PER TUBE PRN ×2 (12:12→20:39)
[2022-05-13 06:40] LABS: Hemoglobin 10.3 g/dL (14.0-18.0); Mean Corpuscular HGB CONC 31.9 g/dL (32.0-36.0); Mean Corpuscular Hemoglobin 29.7 pg (27.0-31.0); Mean Platelet Volume 8.2 fL (7.4-10.4); Platelet Count 273 thou/uL (130-400); RBC Distribution Width 15.2 % (11.5-14.5); Red Blood Cell (RBC) Count 3.48 mill/uL (4.70-6.10); White Blood Cell (WBC) Count 6.7 thou/uL (4.8-10.8)
[2022-05-13 07:03] LABS: Anion Gap 16 mmol/L (10-20); BUN (Urea Nitrogen) 16 mg/dL (8.4-25.7); Calc. Creatinine Clearance 88 mL/min (70-130); Calcium 8.7 mg/dL (7.8-10.44); Carbon Dioxide 23 mmol/L (23-31); Chloride 105 mmol/L (98-107); Estimated GFR 98; Glucose 81 mg/dL (83-110); Potassium 3.1 mmol/L (3.5-5.1); Sodium 141 mmol/L (136-145)
[2022-05-13] MEDS: Lactated Ringer's 1,000 ML IV SCH ×2 (08:13→16:26)
[2022-05-13] MEDS: Pantoprazole 40 MG VIAL IVP SCH ×2 (08:14→21:30)
[2022-05-13] MEDS: Enoxaparin Sodium 40 MG/0.4 ML SYRINGE SC SCH (08:14)
[2022-05-13] MEDS: Pregabalin 75 MG CAP PO SCH ×3 (08:18→21:27)
[2022-05-13] MEDS: Finasteride 5 MG TAB PO SCH (08:18)
[2022-05-13] MEDS: Losartan 25 MG TAB PO SCH (08:18)
[2022-05-13] MEDS ORDERED: MD-Gastroview 120 ML BOT ONE (11:21)
[2022-05-13] MEDS: Acetaminophen/Codeine 30-300mg Tablet PER TUBE PRN (12:07)
[2022-05-13 15:49] VITALS: BMI 18.9
[2022-05-13] MEDS: Hydrochlorothiazide 25 MG TAB PO SCH (21:27)
[2022-05-13] MEDS: Amlodipine 5 MG TAB PO SCH (21:28)
[2022-05-13] MEDS: Mirtazapine 30 MG TAB PO SCH (21:28)
[2022-05-13] MEDS: Melatonin 3 MG TAB PER TUBE SCH (21:29)
[2022-05-13] MEDS: Simvastatin 10 MG TAB PO SCH (21:31)
[2022-05-14] MEDS: Lactated Ringer's 1,000 ML IV SCH ×3 (02:05→23:00)
[2022-05-14 06:40] LABS: Mean Corpuscular HGB CONC 31.8 g/dL (32.0-36.0); Mean Corpuscular Hemoglobin 29.7 pg (27.0-31.0); Mean Corpuscular Volume 93.3 fL (78.0-98.0); Mean Platelet Volume 8.4 fL (7.4-10.4); Platelet Count 285 thou/uL (130-400); Red Blood Cell (RBC) Count 3.35 mill/uL (4.70-6.10); White Blood Cell (WBC) Count 6.3 thou/uL (4.8-10.8)
[2022-05-14 06:54] LABS: Anion Gap 15 mmol/L (10-20); BUN (Urea Nitrogen) 16 mg/dL (8.4-25.7); Calc. Creatinine Clearance 77 mL/min (70-130); Calcium 8.7 mg/dL (7.8-10.44); Carbon Dioxide 23 mmol/L (23-31); Chloride 108 mmol/L (98-107); Estimated GFR 94; Glucose 69 mg/dL (83-110); Sodium 143 mmol/L (136-145)
[2022-05-14 07:12] LABS: Potassium 2.8 mmol/L (3.5-5.1)
[2022-05-14] MEDS ORDERED: Potassium Chloride 40 MEQ in Premix Bag 1 BAG IVPB ONE (07:49)
[2022-05-14] MEDS: Enoxaparin Sodium 40 MG/0.4 ML SYRINGE SC SCH (08:34)
[2022-05-14] MEDS: Losartan 25 MG TAB PO SCH (08:35)
[2022-05-14] MEDS: Pregabalin 75 MG CAP PO SCH ×3 (08:35→21:02)
[2022-05-14] MEDS: Finasteride 5 MG TAB PO SCH (08:36)
[2022-05-14] MEDS: Pantoprazole 40 MG VIAL IVP SCH ×2 (08:44→21:00)
[2022-05-14] MEDS: Potassium Chloride 20 MEQ in Premix Bag 1 BAG IVPB SCH ×2 (09:55→11:19)
[2022-05-14 12:27] LABS: Anion Gap 18 mmol/L (10-20); BUN (Urea Nitrogen) 16 mg/dL (8.4-25.7); Calc. Creatinine Clearance 74 mL/min (70-130); Calcium 8.8 mg/dL (7.8-10.44); Carbon Dioxide 21 mmol/L (23-31); Chloride 106 mmol/L (98-107); Estimated GFR 93; Glucose 70 mg/dL (83-110); Potassium 3.1 mmol/L (3.5-5.1); Sodium 142 mmol/L (136-145)
[2022-05-14] MEDS ORDERED: Potassium Chloride 20 MEQ in Premix Bag 1 BAG IVPB SCH (15:15)
[2022-05-14 18:58] LABS: Anion Gap 21 mmol/L (10-20); BUN (Urea Nitrogen) 18 mg/dL (8.4-25.7); Calc. Creatinine Clearance 74 mL/min (70-130); Calcium 8.6 mg/dL (7.8-10.44); Carbon Dioxide 18 mmol/L (23-31); Chloride 107 mmol/L (98-107); Estimated GFR 93; Glucose 70 mg/dL (83-110); Potassium 3.6 mmol/L (3.5-5.1); Sodium 142 mmol/L (136-145)
[2022-05-14] MEDS: Melatonin 3 MG TAB PER TUBE SCH (21:01)
[2022-05-14] MEDS: Hydrochlorothiazide 25 MG TAB PO SCH (21:01)
[2022-05-14] MEDS: Amlodipine 5 MG TAB PO SCH (21:01)
[2022-05-14] MEDS: Mirtazapine 30 MG TAB PO SCH (21:02)
[2022-05-14] MEDS: Simvastatin 10 MG TAB PO SCH (21:03)
[2022-05-15] MEDS: Lactated Ringer's 1,000 ML IV SCH (04:41)
[2022-05-15] MEDS: Dextrose 5%-Lactated Ringers 1,000 ML IV SCH ×3 (05:56→23:47)
[2022-05-15 06:36] LABS: Hemoglobin 11.1 g/dL (14.0-18.0); Mean Corpuscular HGB CONC 31.6 g/dL (32.0-36.0); Mean Corpuscular Volume 94.8 fL (78.0-98.0); Mean Platelet Volume 8.5 fL (7.4-10.4); Platelet Count 254 thou/uL (130-400); White Blood Cell (WBC) Count 6.4 thou/uL (4.8-10.8)
[2022-05-15 06:49] LABS: Anion Gap 17 mmol/L (10-20); BUN (Urea Nitrogen) 14 mg/dL (8.4-25.7); Calc. Creatinine Clearance 74 mL/min (70-130); Calcium 8.7 mg/dL (7.8-10.44); Carbon Dioxide 24 mmol/L (23-31); Chloride 104 mmol/L (98-107); Estimated GFR 93; Glucose 82 mg/dL (83-110); Hemoglobin A1c 5.2 % (4.0-6.0); Sodium 142 mmol/L (136-145)
[2022-05-15] MEDS ORDERED: Fentanyl 100 MCG/2 ML VIAL ONE (09:29)
[2022-05-15] MEDS ORDERED: PROPOFOL 200 MG/20 ML VIAL ONE (09:38)
[2022-05-15] MEDS: Enoxaparin Sodium 40 MG/0.4 ML SYRINGE SC SCH (11:16)
[2022-05-15] MEDS: Losartan 25 MG TAB PO SCH (11:18)
[2022-05-15] MEDS: Pregabalin 75 MG CAP PO SCH ×3 (11:19→20:15)
[2022-05-15] MEDS: Finasteride 5 MG TAB PO SCH (11:19)
[2022-05-15] MEDS: Pantoprazole 40 MG VIAL IVP SCH ×2 (11:21→20:14)
[2022-05-15] MEDS: Potassium Chloride 20 MEQ in Premix Bag 1 BAG IVPB SCH ×2 (11:23→14:14)
[2022-05-15] MEDS: Sucralfate 1 GM/10 ML UDCUP PER TUBE SCH (20:13)
[2022-05-15] MEDS: Acetaminophen/Codeine 30-300mg Tablet PER TUBE PRN (20:14)
[2022-05-15] MEDS: Hydrochlorothiazide 25 MG TAB PO SCH (20:14)
[2022-05-15] MEDS: Amlodipine 5 MG TAB PO SCH (20:16)
[2022-05-15] MEDS: Mirtazapine 30 MG TAB PO SCH (20:16)
[2022-05-15] MEDS: Simvastatin 10 MG TAB PO SCH (20:17)
[2022-05-15] MEDS: Melatonin 3 MG TAB PER TUBE SCH (21:13)
[2022-05-16] MEDS: Lactated Ringer's 1,000 ML IV SCH ×4 (02:41→23:59)
[2022-05-16 05:59] LABS: Hemoglobin 10.5 g/dL (14.0-18.0); Mean Corpuscular HGB CONC 32.2 g/dL (32.0-36.0); Mean Corpuscular Hemoglobin 29.8 pg (27.0-31.0); Mean Corpuscular Volume 92.8 fL (78.0-98.0); Mean Platelet Volume 8.2 fL (7.4-10.4); Platelet Count 242 thou/uL (130-400); RBC Distribution Width 14.9 % (11.5-14.5); White Blood Cell (WBC) Count 13.9 thou/uL (4.8-10.8)
[2022-05-16 06:22] LABS: Anion Gap 10 mmol/L (10-20); BUN (Urea Nitrogen) 12 mg/dL (8.4-25.7); Calc. Creatinine Clearance 66 mL/min (70-130); Calcium 8.1 mg/dL (7.8-10.44); Carbon Dioxide 30 mmol/L (23-31); Chloride 102 mmol/L (98-107); Estimated GFR 89; Glucose 184 mg/dL (83-110); Sodium 139 mmol/L (136-145)
[2022-05-16 06:34] LABS: Potassium 2.8 mmol/L (3.5-5.1)
[2022-05-16] MEDS: Potassium Chloride 20 MEQ in Premix Bag 1 BAG IVPB SCH ×2 (08:55→11:47)
[2022-05-16] MEDS: Finasteride 5 MG TAB PO SCH (09:02)
[2022-05-16] MEDS: Sucralfate 1 GM/10 ML UDCUP PER TUBE SCH ×4 (09:03→20:22)
[2022-05-16] MEDS: Pregabalin 75 MG CAP PO SCH ×3 (09:03→20:22)
[2022-05-16] MEDS: Pantoprazole 40 MG VIAL IVP SCH ×2 (09:03→20:20)
[2022-05-16] MEDS: Enoxaparin Sodium 40 MG/0.4 ML SYRINGE SC SCH (09:04)
[2022-05-16] MEDS: Losartan 25 MG TAB PO SCH (11:49)
[2022-05-16 12:24] LABS: Magnesium 1.5 mg/dL (1.6-2.6); Phosphorus 3.3 mg/dL (2.3-4.7)
[2022-05-16 13:36] LABS: Anion Gap 6 mmol/L (10-20); BUN (Urea Nitrogen) 12 mg/dL (8.4-25.7); Calc. Creatinine Clearance 65 mL/min (70-130); Calcium 8.5 mg/dL (7.8-10.44); Carbon Dioxide 33 mmol/L (23-31); Chloride 103 mmol/L (98-107); Estimated GFR 89; Glucose 153 mg/dL (83-110); Potassium 3.3 mmol/L (3.5-5.1); Sodium 139 mmol/L (136-145)
[2022-05-16] MEDS: Amlodipine 5 MG TAB PO SCH (20:21)
[2022-05-16] MEDS: Melatonin 3 MG TAB PER TUBE SCH (20:21)
[2022-05-16] MEDS: Mirtazapine 30 MG TAB PO SCH (20:22)
[2022-05-16] MEDS: Hydrochlorothiazide 25 MG TAB PO SCH (20:22)
[2022-05-16] MEDS: Simvastatin 10 MG TAB PO SCH (20:23)
[2022-05-17] MEDS: Lactated Ringer's 1,000 ML IV SCH ×2 (03:09→20:08)
[2022-05-17 06:28] LABS: Hemoglobin 11.3 g/dL (14.0-18.0); Mean Corpuscular HGB CONC 31.8 g/dL (32.0-36.0); Mean Corpuscular Volume 94.3 fL (78.0-98.0); Mean Platelet Volume 8.4 fL (7.4-10.4); Platelet Count 216 thou/uL (130-400); RBC Distribution Width 14.8 % (11.5-14.5); Red Blood Cell (RBC) Count 3.78 mill/uL (4.70-6.10); White Blood Cell (WBC) Count 9.3 thou/uL (4.8-10.8)
[2022-05-17 06:50] LABS: Anion Gap 9 mmol/L (10-20); BUN (Urea Nitrogen) 9 mg/dL (8.4-25.7); Calc. Creatinine Clearance 80 mL/min (70-130); Calcium 8.5 mg/dL (7.8-10.44); Carbon Dioxide 34 mmol/L (23-31); Chloride 99 mmol/L (98-107); Estimated GFR 95; Glucose 174 mg/dL (83-110); Sodium 139 mmol/L (136-145)
[2022-05-17 06:59] LABS: Potassium 2.9 mmol/L (3.5-5.1)
[2022-05-17] MEDS: Potassium Chloride 20 MEQ in Premix Bag 1 BAG IVPB SCH ×4 (09:36→21:32)
[2022-05-17] MEDS: Enoxaparin Sodium 40 MG/0.4 ML SYRINGE SC SCH (09:38)
[2022-05-17] MEDS: Pantoprazole 40 MG VIAL IVP SCH ×2 (09:39→21:36)
[2022-05-17] MEDS: Finasteride 5 MG TAB PO SCH (09:42)
[2022-05-17] MEDS: Pregabalin 75 MG CAP PO SCH ×3 (09:43→21:36)
[2022-05-17] MEDS: Losartan 25 MG TAB PO SCH (09:43)
[2022-05-17] MEDS: Sucralfate 1 GM/10 ML UDCUP PER TUBE SCH ×4 (11:20→21:37)
[2022-05-17 15:53] LABS: Anion Gap 12 mmol/L (10-20); BUN (Urea Nitrogen) 10 mg/dL (8.4-25.7); Calc. Creatinine Clearance 79 mL/min (70-130); Calcium 8.8 mg/dL (7.8-10.44); Carbon Dioxide 33 mmol/L (23-31); Chloride 98 mmol/L (98-107); Estimated GFR 95; Glucose 145 mg/dL (83-110); Potassium 3.1 mmol/L (3.5-5.1); Sodium 140 mmol/L (136-145)
[2022-05-17] MEDS: Simvastatin 10 MG TAB PO SCH (21:35)
[2022-05-17] MEDS: Melatonin 3 MG TAB PER TUBE SCH (21:35)
[2022-05-17] MEDS: Mirtazapine 30 MG TAB PO SCH (21:36)
[2022-05-17] MEDS: Amlodipine 5 MG TAB PO SCH (21:36)
[2022-05-17] MEDS: Hydrochlorothiazide 25 MG TAB PO SCH (21:36)
[2022-05-18] MEDS: Lactated Ringer's 1,000 ML IV SCH (04:39)
[2022-05-18 06:38] LABS: Hemoglobin 10.7 g/dL (14.0-18.0); Mean Corpuscular HGB CONC 30.4 g/dL (32.0-36.0); Mean Corpuscular Hemoglobin 29.2 pg (27.0-31.0); Mean Corpuscular Volume 96.3 fL (78.0-98.0); Platelet Count 209 thou/uL (130-400); RBC Distribution Width 14.9 % (11.5-14.5); Red Blood Cell (RBC) Count 3.65 mill/uL (4.70-6.10); White Blood Cell (WBC) Count 6.6 thou/uL (4.8-10.8)
[2022-05-18 06:56] LABS: Anion Gap 10 mmol/L (10-20); BUN (Urea Nitrogen) 10 mg/dL (8.4-25.7); Calc. Creatinine Clearance 93 mL/min (70-130); Calcium 8.9 mg/dL (7.8-10.44); Carbon Dioxide 33 mmol/L (23-31); Chloride 102 mmol/L (98-107); Estimated GFR 99; Glucose 145 mg/dL (83-110); Magnesium 1.8 mg/dL (1.6-2.6); Potassium 3.2 mmol/L (3.5-5.1); Sodium 142 mmol/L (136-145)
[2022-05-18] MEDS: Enoxaparin Sodium 40 MG/0.4 ML SYRINGE SC SCH (08:35)
[2022-05-18] MEDS: Finasteride 5 MG TAB PO SCH (08:35)
[2022-05-18] MEDS: Losartan 25 MG TAB PO SCH (08:35)
[2022-05-18] MEDS: Pantoprazole 40 MG VIAL IVP SCH ×2 (08:36→21:02)
[2022-05-18] MEDS: Pregabalin 75 MG CAP PO SCH ×3 (08:36→20:55)
[2022-05-18] MEDS: Sucralfate 1 GM/10 ML UDCUP PER TUBE SCH ×4 (08:39→21:02)
[2022-05-18] MEDS: Potassium Chloride 20 MEQ in Premix Bag 1 BAG IVPB SCH ×3 (11:54→20:57)
[2022-05-18 14:39] LABS: Anion Gap 15 mmol/L (10-20); BUN (Urea Nitrogen) 11 mg/dL (8.4-25.7); Calc. Creatinine Clearance 82 mL/min (70-130); Calcium 9.3 mg/dL (7.8-10.44); Carbon Dioxide 25 mmol/L (23-31); Chloride 102 mmol/L (98-107); Estimated GFR 95; Glucose 149 mg/dL (83-110); Potassium 3.6 mmol/L (3.5-5.1); Sodium 138 mmol/L (136-145)
[2022-05-18] MEDS: Acetaminophen/Codeine 30-300mg Tablet PER TUBE PRN (18:22)
[2022-05-18] MEDS: Melatonin 3 MG TAB PER TUBE SCH (20:55)
[2022-05-18] MEDS: Hydrochlorothiazide 25 MG TAB PO SCH (20:56)
[2022-05-18] MEDS: Mirtazapine 30 MG TAB PO SCH (20:56)
[2022-05-18] MEDS: Amlodipine 5 MG TAB PO SCH (20:57)
[2022-05-18] MEDS: Simvastatin 10 MG TAB PO SCH (20:57)
[2022-05-19] MEDS: Potassium Chloride 20 MEQ in Premix Bag 1 BAG IVPB SCH (02:00)
[2022-05-19 06:27] LABS: Hemoglobin 10.6 g/dL (14.0-18.0); Mean Corpuscular HGB CONC 30.6 g/dL (32.0-36.0); Mean Corpuscular Hemoglobin 29.3 pg (27.0-31.0); Mean Corpuscular Volume 95.6 fL (78.0-98.0); Platelet Count 205 thou/uL (130-400); RBC Distribution Width 14.7 % (11.5-14.5); Red Blood Cell (RBC) Count 3.63 mill/uL (4.70-6.10); White Blood Cell (WBC) Count 7.5 thou/uL (4.8-10.8)
[2022-05-19 06:45] LABS: Anion Gap 9 mmol/L (10-20); BUN (Urea Nitrogen) 12 mg/dL (8.4-25.7); Calc. Creatinine Clearance 90 mL/min (70-130); Calcium 8.8 mg/dL (7.8-10.44); Carbon Dioxide 30 mmol/L (23-31); Chloride 104 mmol/L (98-107); Estimated GFR 98; Glucose 148 mg/dL (83-110); Potassium 3.9 mmol/L (3.5-5.1); Sodium 139 mmol/L (136-145)
[2022-05-19] MEDS: Lactated Ringer's 1,000 ML IV SCH (09:51)
[2022-05-19] MEDS: Finasteride 5 MG TAB PO SCH (09:52)
[2022-05-19] MEDS: Enoxaparin Sodium 40 MG/0.4 ML SYRINGE SC SCH (09:52)
[2022-05-19] MEDS: Pregabalin 75 MG CAP PO SCH ×3 (09:52→20:38)
[2022-05-19] MEDS: Pantoprazole 40 MG VIAL IVP SCH ×2 (09:53→20:38)
[2022-05-19] MEDS: Sucralfate 1 GM/10 ML UDCUP PER TUBE SCH ×4 (09:55→20:38)
[2022-05-19] MEDS: Losartan 25 MG TAB PO SCH (09:55)
[2022-05-19] MEDS: Acetaminophen/Codeine 30-300mg Tablet PER TUBE PRN (13:37)
[2022-05-19] MEDS: Mirtazapine 30 MG TAB PO SCH (20:41)
[2022-05-19] MEDS: Hydrochlorothiazide 25 MG TAB PO SCH (20:41)
[2022-05-19] MEDS: Amlodipine 5 MG TAB PO SCH (20:41)
[2022-05-19] MEDS: Simvastatin 10 MG TAB PO SCH (20:43)
[2022-05-19] MEDS: Melatonin 3 MG TAB PER TUBE SCH (20:43)
[2022-05-20 06:27] LABS: Hemoglobin 10.6 g/dL (14.0-18.0); Mean Corpuscular HGB CONC 30.1 g/dL (32.0-36.0); Mean Corpuscular Volume 96.3 fL (78.0-98.0); Mean Platelet Volume 8.7 fL (7.4-10.4); Platelet Count 206 thou/uL (130-400); RBC Distribution Width 14.7 % (11.5-14.5); Red Blood Cell (RBC) Count 3.66 mill/uL (4.70-6.10); White Blood Cell (WBC) Count 7.1 thou/uL (4.8-10.8)
[2022-05-20 06:54] LABS: Anion Gap 10 mmol/L (10-20); BUN (Urea Nitrogen) 17 mg/dL (8.4-25.7); Calc. Creatinine Clearance 87 mL/min (70-130); Carbon Dioxide 32 mmol/L (23-31); Chloride 101 mmol/L (98-107); Estimated GFR 97; Glucose 151 mg/dL (83-110); Potassium 3.7 mmol/L (3.5-5.1); Sodium 139 mmol/L (136-145)
[2022-05-20] MEDS: Sucralfate 1 GM/10 ML UDCUP PER TUBE SCH ×4 (08:52→21:00)
[2022-05-20] MEDS: Enoxaparin Sodium 40 MG/0.4 ML SYRINGE SC SCH (08:53)
[2022-05-20] MEDS: Pregabalin 75 MG CAP PO SCH ×3 (08:54→21:00)
[2022-05-20] MEDS: Losartan 25 MG TAB PO SCH (08:54)
[2022-05-20] MEDS: Finasteride 5 MG TAB PO SCH (08:54)
[2022-05-20] MEDS: Pantoprazole 40 MG VIAL IVP SCH ×2 (08:55→21:00)
[2022-05-20] MEDS: Mirtazapine 30 MG TAB PO SCH (21:00)
[2022-05-20] MEDS: Melatonin 3 MG TAB PER TUBE SCH (21:00)
[2022-05-20] MEDS: Simvastatin 10 MG TAB PO SCH (21:00)
[2022-05-20] MEDS: Hydrochlorothiazide 25 MG TAB PO SCH (21:00)
[2022-05-20] MEDS: Amlodipine 5 MG TAB PO SCH (21:01)
[2022-05-21 06:41] LABS: Hemoglobin 11.3 g/dL (14.0-18.0); Mean Corpuscular HGB CONC 32.5 g/dL (32.0-36.0); Mean Corpuscular Hemoglobin 30.6 pg (27.0-31.0); Mean Corpuscular Volume 94.1 fL (78.0-98.0); Mean Platelet Volume 8.9 fL (7.4-10.4); Platelet Count 217 thou/uL (130-400); RBC Distribution Width 14.6 % (11.5-14.5); Red Blood Cell (RBC) Count 3.68 mill/uL (4.70-6.10); White Blood Cell (WBC) Count 7.5 thou/uL (4.8-10.8)
[2022-05-21 07:00] LABS: Anion Gap 11 mmol/L (10-20); BUN (Urea Nitrogen) 17 mg/dL (8.4-25.7); Calc. Creatinine Clearance 88 mL/min (70-130); Calcium 9.4 mg/dL (7.8-10.44); Carbon Dioxide 32 mmol/L (23-31); Chloride 100 mmol/L (98-107); Estimated GFR 98; Glucose 144 mg/dL (83-110); Potassium 3.4 mmol/L (3.5-5.1); Sodium 140 mmol/L (136-145)
[2022-05-21] MEDS ORDERED: Potassium Chloride 40 MEQ in Premix Bag 1 BAG IVPB SCH (08:15)
[2022-05-21] MEDS: Enoxaparin Sodium 40 MG/0.4 ML SYRINGE SC SCH (08:43)
[2022-05-21] MEDS: Pregabalin 75 MG CAP PO SCH ×3 (08:44→20:40)
[2022-05-21] MEDS: Finasteride 5 MG TAB PO SCH (08:44)
[2022-05-21] MEDS: Pantoprazole 40 MG VIAL IVP SCH ×2 (08:44→20:41)
[2022-05-21] MEDS: Losartan 25 MG TAB PO SCH (08:44)
[2022-05-21 09:28] LABS: Magnesium 1.9 mg/dL (1.6-2.6)
[2022-05-21] MEDS: Sucralfate 1 GM/10 ML UDCUP PER TUBE SCH ×4 (11:12→20:39)
[2022-05-21] MEDS: Potassium Chloride 20 MEQ in Premix Bag 1 BAG IVPB SCH ×2 (11:13→13:22)
[2022-05-21] MEDS ORDERED: FLU VACC QS2022-23(65YR UP)/PF 240 MCG/0.7 ML SYRINGE IM ONE (14:02)
[2022-05-21] MEDS: Amlodipine 5 MG TAB PO SCH (20:39)
[2022-05-21] MEDS: Simvastatin 10 MG TAB PO SCH (20:40)
[2022-05-21] MEDS: Hydrochlorothiazide 25 MG TAB PO SCH (20:40)
[2022-05-21] MEDS: Mirtazapine 30 MG TAB PO SCH (20:40)
[2022-05-21] MEDS: Melatonin 3 MG TAB PER TUBE SCH (20:40)
[2022-05-21] MEDS: Acetaminophen/Codeine 30-300mg Tablet PER TUBE PRN (20:41)
[2022-05-22 07:02] LABS: Hemoglobin 10.8 g/dL (14.0-18.0); Mean Corpuscular HGB CONC 30.8 g/dL (32.0-36.0); Mean Corpuscular Hemoglobin 28.9 pg (27.0-31.0); Mean Corpuscular Volume 93.8 fL (78.0-98.0); Mean Platelet Volume 8.8 fL (7.4-10.4); Platelet Count 224 thou/uL (130-400); RBC Distribution Width 14.6 % (11.5-14.5); Red Blood Cell (RBC) Count 3.73 mill/uL (4.70-6.10)
[2022-05-22 07:30] LABS: Anion Gap 12 mmol/L (10-20); BUN (Urea Nitrogen) 22 mg/dL (8.4-25.7); Calc. Creatinine Clearance 84 mL/min (70-130); Calcium 9.4 mg/dL (7.8-10.44); Carbon Dioxide 29 mmol/L (23-31); Chloride 104 mmol/L (98-107); Estimated GFR 96; Glucose 104 mg/dL (83-110); Potassium 3.7 mmol/L (3.5-5.1); Sodium 141 mmol/L (136-145)
[2022-05-22] MEDS ORDERED: Lactated Ringer's 1,000 ML IV SCH (08:30)
[2022-05-22] MEDS: Finasteride 5 MG TAB PO SCH (09:08)
[2022-05-22] MEDS: Pregabalin 75 MG CAP PO SCH ×3 (09:08→20:57)
[2022-05-22] MEDS: Losartan 25 MG TAB PO SCH (09:08)
[2022-05-22] MEDS: Enoxaparin Sodium 40 MG/0.4 ML SYRINGE SC SCH (09:09)
[2022-05-22] MEDS: Sucralfate 1 GM/10 ML UDCUP PER TUBE SCH ×4 (09:09→20:57)
[2022-05-22] MEDS: Pantoprazole 40 MG VIAL IVP SCH ×2 (09:09→20:57)
[2022-05-22] MEDS: Dextrose 5%-Lactated Ringers 1,000 ML IV SCH ×2 (13:16→20:53)
[2022-05-22] MEDS: Melatonin 3 MG TAB PER TUBE SCH (20:56)
[2022-05-22] MEDS: Simvastatin 10 MG TAB PO SCH (20:57)
[2022-05-22] MEDS: Amlodipine 5 MG TAB PO SCH (20:57)
[2022-05-22] MEDS: Acetaminophen/Codeine 30-300mg Tablet PER TUBE PRN (20:57)
[2022-05-22] MEDS: Mirtazapine 30 MG TAB PO SCH (20:57)
[2022-05-22] MEDS: Hydrochlorothiazide 25 MG TAB PO SCH (20:57)
[2022-05-23] MEDS: Dextrose 5%-Lactated Ringers 1,000 ML IV SCH ×3 (04:48→15:59)
[2022-05-23] MEDS ORDERED: fentaNYL Citrate/PF 100 MCG/2 ML SYRINGE ONE (06:45)
[2022-05-23] MEDS: Losartan 25 MG TAB PO SCH (06:52)
[2022-05-23] MEDS: Finasteride 5 MG TAB PO SCH (06:52)
[2022-05-23] MEDS: Pantoprazole 40 MG VIAL IVP SCH ×2 (06:53→21:27)
[2022-05-23] MEDS: Sucralfate 1 GM/10 ML UDCUP PER TUBE SCH ×2 (06:53→14:52)
[2022-05-23] MEDS: Pregabalin 75 MG CAP PO SCH ×3 (06:53→21:28)
[2022-05-23] MEDS ORDERED: CEFAZOLIN 2 GM VIAL ONE (07:32)
[2022-05-23] MEDS ORDERED: Sodium Chloride 0.9% 100 ML ONE (07:32)
[2022-05-23] MEDS ORDERED: Propofol 500 MG/50 ML VIAL ONE ×2 (07:35→09:59)
[2022-05-23] MEDS ORDERED: Ketamine 50 MG/ML (10ML VIAL) ONE (07:35)
[2022-05-23] MEDS ORDERED: SUGAMMADEX SODIUM 200 MG/2 ML VIAL ONE (07:35)
[2022-05-23] MEDS ORDERED: Bupivacaine HCl 0.5%/Epinephrine 1:200,000/PF 30 ml Vial ONE (07:38)
[2022-05-23] MEDS ORDERED: PHENYLEPHRINE-NS 100 MCG/ML 10 ML SYRINGE ONE (07:46)
[2022-05-23] MEDS ORDERED: Bupivacaine 0.25% HCL 30 ML VIAL ONE ×2 (07:46→08:42)
[2022-05-23] MEDS ORDERED: PROPOFOL 200 MG/20 ML VIAL ONE (07:46)
[2022-05-23] MEDS ORDERED: Ondansetron PF 4 MG/2 ML Vial ONE (07:46)
[2022-05-23] MEDS ORDERED: Lidocaine 1% MPF 2 ML VIAL ONE (07:46)
[2022-05-23] MEDS ORDERED: Rocuronium Bromide 10 MG/ML (10ML VIAL) ONE (07:46)
[2022-05-23] MEDS ORDERED: ePHEDrine 50 MG/ML VIAL ONE (07:46)
[2022-05-23] MEDS ORDERED: Succinylcholine 200 MG/10 ml SYRINGE FS ONE (07:46)
[2022-05-23] MEDS ORDERED: diphenhydrAMINE 50 MG/ML VIAL ONE (07:46)
[2022-05-23] MEDS ORDERED: Bupivacaine PF 0.5% 30 ML VIAL ONE (08:37)
[2022-05-23] MEDS ORDERED: Promethazine HCl 25 MG/ML VIAL IVPB PRN (09:40)
[2022-05-23] MEDS ORDERED: PACU-Morphine 4MG/ML VIAL SLOW IVP PRN (09:40)
[2022-05-23] MEDS ORDERED: Fentanyl 100 MCG/2 ML VIAL ONE (10:38)
[2022-05-23 12:52] LABS: #Eosinphils 0.1 thou/uL (0.0-0.7); #Monocytes 0.9 thou/uL (0.11-0.59); #Neutrophils 7.4 thou/uL (1.40-6.50); %Basophils 0.3 % (0.0-1.0); %Eosinophils 0.7 % (0.0-10.0); %Lymphocytes 10.4 % (21.0-51.0); %Monocytes 9.9 % (0.0-10.0); %Neutrophils 78.7 % (42.0-75.0); Hemoglobin 11.3 g/dL (14.0-18.0); Mean Corpuscular HGB CONC 31.4 g/dL (32.0-36.0); Mean Corpuscular Hemoglobin 29.2 pg (27.0-31.0); Mean Corpuscular Volume 92.8 fL (78.0-98.0); Mean Platelet Volume 8.5 fL (7.4-10.4); Platelet Count 219 thou/uL (130-400); RBC Distribution Width 14.4 % (11.5-14.5); Red Blood Cell (RBC) Count 3.89 mill/uL (4.70-6.10); White Blood Cell (WBC) Count 9.4 thou/uL (4.8-10.8)
[2022-05-23 13:17] LABS: Anion Gap 12 mmol/L (10-20); BUN (Urea Nitrogen) 12 mg/dL (8.4-25.7); Calc. Creatinine Clearance 79 mL/min (70-130); Calcium 9.1 mg/dL (7.8-10.44); Carbon Dioxide 30 mmol/L (23-31); Chloride 101 mmol/L (98-107); Estimated GFR 95; Glucose 155 mg/dL (83-110); Potassium 3.1 mmol/L (3.5-5.1); Sodium 140 mmol/L (136-145)
[2022-05-23] MEDS: Acetaminophen/Codeine 30-300mg Tablet PER TUBE PRN (14:34)
[2022-05-23] MEDS ORDERED: Morphine 2 MG/ML VIAL SLOW IVP SCH (15:00)
[2022-05-23] MEDS ORDERED: Morphine 4 MG/ML VIAL SLOW IVP PRN (16:18)
[2022-05-23] MEDS ORDERED: Ketorolac Tromethamine 30 MG/ML VIAL IVP SCH (16:30)
[2022-05-23] MEDS: HumaLOG 300 UNITS/3 ML VIAL SC PRN (18:14)
[2022-05-23] MEDS: Morphine 2 MG/ML VIAL SLOW IVP PRN ×2 (18:25→21:26)
[2022-05-23] MEDS: Enoxaparin Sodium 40 MG/0.4 ML SYRINGE SC SCH (21:27)
[2022-05-23] MEDS: Amlodipine 5 MG TAB PO SCH (21:28)
[2022-05-23] MEDS: Melatonin 3 MG TAB PER TUBE SCH (21:28)
[2022-05-23] MEDS: Hydrochlorothiazide 25 MG TAB PO SCH (21:28)
[2022-05-23] MEDS: Mirtazapine 30 MG TAB PO SCH (21:29)
[2022-05-23] MEDS: Simvastatin 10 MG TAB PO SCH (21:29)
[2022-05-24] MEDS: Ketorolac Tromethamine 30 MG/ML VIAL IVP SCH ×5 (00:12→23:17)
[2022-05-24 04:58] LABS: #Basophils 0.1 thou/uL (0.0-0.2); #Eosinphils 0.2 thou/uL (0.0-0.7); #Lymphocytes 1.7 thou/uL (1.20-3.40); #Monocytes 1.2 thou/uL (0.11-0.59); #Neutrophils 9.1 thou/uL (1.40-6.50); %Basophils 0.5 % (0.0-1.0); %Eosinophils 1.3 % (0.0-10.0); %Lymphocytes 14.1 % (21.0-51.0); %Monocytes 9.6 % (0.0-10.0); %Neutrophils 74.4 % (42.0-75.0); Hemoglobin 11.7 g/dL (14.0-18.0); Mean Corpuscular HGB CONC 30.9 g/dL (32.0-36.0); Mean Corpuscular Hemoglobin 28.8 pg (27.0-31.0); Mean Corpuscular Volume 93.3 fL (78.0-98.0); Mean Platelet Volume 8.4 fL (7.4-10.4); Platelet Count 228 thou/uL (130-400); RBC Distribution Width 14.3 % (11.5-14.5); Red Blood Cell (RBC) Count 4.05 mill/uL (4.70-6.10); White Blood Cell (WBC) Count 12.2 thou/uL (4.8-10.8)
[2022-05-24 05:32] LABS: ALT (SGPT) 14 U/L (8-55); AST (SGOT) 20 U/L (5-34); Albumin 3.2 g/dL (3.4-4.8); Alkaline Phosphatase 81 U/L (40-110); Anion Gap 12 mmol/L (10-20); BUN (Urea Nitrogen) 10 mg/dL (8.4-25.7); Bilirubin, Total 0.9 mg/dL (0.2-1.2); Calc. Creatinine Clearance 87 mL/min (70-130); Calcium 8.8 mg/dL (7.8-10.44); Carbon Dioxide 30 mmol/L (23-31); Chloride 97 mmol/L (98-107); Estimated GFR 97; Globulin 2.7 g/dL (2.4-3.5); Glucose 153 mg/dL (83-110); Magnesium 1.5 mg/dL (1.6-2.6); Phosphorus 3.3 mg/dL (2.3-4.7); Protein, Total 5.9 g/dL (5.8-8.1); Sodium 136 mmol/L (136-145)
[2022-05-24] MEDS: HumaLOG 300 UNITS/3 ML VIAL SC PRN (05:34)
[2022-05-24] MEDS: Dextrose 5%-Lactated Ringers 1,000 ML IV SCH ×2 (05:36→15:42)
[2022-05-24 05:49] LABS: Potassium 2.9 mmol/L (3.5-5.1)
[2022-05-24] MEDS ORDERED: Magnesium 2 GM/50 ML(in water) 2 GM in Premix Bag 1 BAG IVPB SCH (06:30)
[2022-05-24] MEDS: Potassium Chloride 20 MEQ in Premix Bag 1 BAG IVPB SCH ×2 (06:52→09:35)
[2022-05-24] MEDS: Finasteride 5 MG TAB PO SCH (08:41)
[2022-05-24] MEDS: Pregabalin 75 MG CAP PO SCH ×4 (08:41→21:17)
[2022-05-24] MEDS: Pantoprazole 40 MG VIAL IVP SCH ×2 (08:41→21:19)
[2022-05-24] MEDS: Losartan 25 MG TAB PO SCH (08:41)
[2022-05-24 18:22] LABS: Anion Gap 8 mmol/L (10-20); BUN (Urea Nitrogen) 10 mg/dL (8.4-25.7); Calc. Creatinine Clearance 74 mL/min (70-130); Calcium 8.6 mg/dL (7.8-10.44); Carbon Dioxide 33 mmol/L (23-31); Chloride 99 mmol/L (98-107); Estimated GFR 93; Glucose 200 mg/dL (83-110); Potassium 3.3 mmol/L (3.5-5.1); Sodium 137 mmol/L (136-145)
[2022-05-24] MEDS: Mirtazapine 30 MG TAB PO SCH (21:17)
[2022-05-24] MEDS: Amlodipine 5 MG TAB PO SCH (21:18)
[2022-05-24] MEDS: Melatonin 3 MG TAB PER TUBE SCH (21:18)
[2022-05-24] MEDS: Hydrochlorothiazide 25 MG TAB PO SCH (21:18)
[2022-05-24] MEDS: Simvastatin 10 MG TAB PO SCH (21:19)
[2022-05-24] MEDS: Enoxaparin Sodium 40 MG/0.4 ML SYRINGE SC SCH (21:19)
[2022-05-24] MEDS: Morphine 2 MG/ML VIAL SLOW IVP PRN (21:19)
[2022-05-25 04:43] LABS: #Eosinphils 0.4 thou/uL (0.0-0.7); #Lymphocytes 2.7 thou/uL (1.20-3.40); #Monocytes 1.1 thou/uL (0.11-0.59); #Neutrophils 5.5 thou/uL (1.40-6.50); %Basophils 0.4 % (0.0-1.0); %Eosinophils 3.8 % (0.0-10.0); %Lymphocytes 27.9 % (21.0-51.0); %Monocytes 11.1 % (0.0-10.0); %Neutrophils 56.9 % (42.0-75.0); Hemoglobin 10.2 g/dL (14.0-18.0); Mean Corpuscular HGB CONC 31.8 g/dL (32.0-36.0); Mean Corpuscular Hemoglobin 29.9 pg (27.0-31.0); Mean Corpuscular Volume 94.1 fL (78.0-98.0); Mean Platelet Volume 8.6 fL (7.4-10.4); Platelet Count 214 thou/uL (130-400); RBC Distribution Width 14.3 % (11.5-14.5); Red Blood Cell (RBC) Count 3.41 mill/uL (4.70-6.10); White Blood Cell (WBC) Count 9.6 thou/uL (4.8-10.8)
[2022-05-25 04:57] LABS: Anion Gap 9 mmol/L (10-20); BUN (Urea Nitrogen) 13 mg/dL (8.4-25.7); Calc. Creatinine Clearance 87 mL/min (70-130); Calcium 8.8 mg/dL (7.8-10.44); Carbon Dioxide 33 mmol/L (23-31); Chloride 102 mmol/L (98-107); Estimated GFR 97; Glucose 88 mg/dL (83-110); Magnesium 1.8 mg/dL (1.6-2.6); Sodium 141 mmol/L (136-145)
[2022-05-25 05:02] LABS: Potassium 2.9 mmol/L (3.5-5.1)
[2022-05-25] MEDS: Ketorolac Tromethamine 30 MG/ML VIAL IVP SCH ×3 (05:52→16:30)
[2022-05-25] MEDS: Dextrose 5%-Lactated Ringers 1,000 ML IV SCH (05:53)
[2022-05-25] MEDS ORDERED: Magnesium 2 GM/50 ML(in water) 2 GM in Premix Bag 1 BAG IVPB SCH (06:30)
[2022-05-25] MEDS ORDERED: Potassium Chloride 20 MEQ TAB PO SCH (06:30)
[2022-05-25] MEDS ORDERED: Potassium Chloride 20 MEQ in Premix Bag 1 BAG IVPB SCH (06:30)
[2022-05-25] MEDS ORDERED: Potassium Chloride 20 MEQ TAB PER TUBE SCH (07:00)
[2022-05-25] MEDS ORDERED: Ondansetron PF 4 MG/2 ML Vial IVP SCH (09:00)
[2022-05-25] MEDS: Finasteride 5 MG TAB PO SCH (09:12)
[2022-05-25] MEDS: Losartan 25 MG TAB PO SCH (09:12)
[2022-05-25] MEDS ORDERED: Polyethylene Glycol 3350 17 GM Packet PER TUBE SCH (09:30)
[2022-05-25] MEDS: Pregabalin 75 MG CAP PO SCH (09:44)
[2022-05-25] MEDS: Lactated Ringer's 1,000 ML IV SCH (09:45)
[2022-05-25] MEDS: Pantoprazole 40 MG VIAL IVP SCH (09:45)
[2022-05-25] MEDS ORDERED: Amlodipine 5 MG TAB PER TUBE SCH (14:01)
[2022-05-25] MEDS: Pregabalin 75 MG CAP PER TUBE SCH ×2 (16:30→21:21)
[2022-05-25] MEDS ORDERED: Potassium Bicarbonate/Cit Ac 20 MEQ TAB PER TUBE SCH (17:00)
[2022-05-25 17:38] LABS: Anion Gap 10 mmol/L (10-20); BUN (Urea Nitrogen) 12 mg/dL (8.4-25.7); Calc. Creatinine Clearance 94 mL/min (70-130); Calcium 8.4 mg/dL (7.8-10.44); Carbon Dioxide 30 mmol/L (23-31); Chloride 102 mmol/L (98-107); Estimated GFR 100; Glucose 148 mg/dL (83-110); Potassium 3.4 mmol/L (3.5-5.1); Sodium 139 mmol/L (136-145)
[2022-05-25] MEDS ORDERED: Potassium Bicarbonate/Cit Ac 20 MEQ TAB PO SCH (18:45)
[2022-05-25] MEDS: Polyethylene Glycol 3350 17 GM Packet PER TUBE SCH (19:51)
[2022-05-25] MEDS: Enoxaparin Sodium 40 MG/0.4 ML SYRINGE SC SCH (21:16)
[2022-05-25] MEDS: Melatonin 3 MG TAB PER TUBE SCH (21:16)
[2022-05-25] MEDS: Amlodipine 5 MG TAB PER TUBE SCH (21:17)
[2022-05-25] MEDS: Mirtazapine 30 MG TAB PER TUBE SCH (21:18)
[2022-05-25] MEDS: Hydrochlorothiazide 25 MG TAB PER TUBE SCH (21:18)
[2022-05-25] MEDS: Simvastatin 10 MG TAB PER TUBE SCH (21:18)
[2022-05-25] MEDS: Acetaminophen/Codeine 30-300mg Tablet PER TUBE PRN (21:22)
[2022-05-26] MEDS: Ketorolac Tromethamine 30 MG/ML VIAL IVP SCH ×5 (01:05→23:59)
[2022-05-26] MEDS: Lactated Ringer's 1,000 ML IV SCH ×2 (01:11→13:52)
[2022-05-26 04:13] LABS: Anion Gap 11 mmol/L (10-20); BUN (Urea Nitrogen) 13 mg/dL (8.4-25.7); Calc. Creatinine Clearance 91 mL/min (70-130); Calcium 8.2 mg/dL (7.8-10.44); Carbon Dioxide 30 mmol/L (23-31); Chloride 103 mmol/L (98-107); Estimated GFR 99; Glucose 155 mg/dL (83-110); Potassium 3.8 mmol/L (3.5-5.1); Sodium 140 mmol/L (136-145)
[2022-05-26] MEDS ORDERED: Potassium Bicarbonate/Cit Ac 20 MEQ TAB PO SCH (08:00)
[2022-05-26] MEDS: Pregabalin 75 MG CAP PER TUBE SCH ×3 (09:28→21:31)
[2022-05-26] MEDS: Polyethylene Glycol 3350 17 GM Packet PER TUBE SCH ×2 (09:29→21:31)
[2022-05-26] MEDS: Potassium Bicarbonate/Cit Ac 20 MEQ TAB PER TUBE SCH (09:29)
[2022-05-26] MEDS: Finasteride 5 MG TAB PO SCH (09:29)
[2022-05-26] MEDS: Losartan 25 MG TAB PER TUBE SCH (09:29)
[2022-05-26] MEDS: Amlodipine 5 MG TAB PER TUBE SCH (21:29)
[2022-05-26] MEDS: Enoxaparin Sodium 40 MG/0.4 ML SYRINGE SC SCH (21:29)
[2022-05-26] MEDS: Hydrochlorothiazide 25 MG TAB PER TUBE SCH (21:30)
[2022-05-26] MEDS: Lansoprazole 15 MG/5 ML (BATCHED)UDCUP PER TUBE SCH (21:30)
[2022-05-26] MEDS: Melatonin 3 MG TAB PER TUBE SCH (21:30)
[2022-05-26] MEDS: Simvastatin 10 MG TAB PER TUBE SCH (21:31)
[2022-05-26] MEDS: Mirtazapine 30 MG TAB PER TUBE SCH (21:31)
[2022-05-27] MEDS: Lactated Ringer's 1,000 ML IV SCH (05:13)
[2022-05-27] MEDS: Ketorolac Tromethamine 30 MG/ML VIAL IVP SCH ×4 (05:13→23:48)
[2022-05-27] MEDS: HumaLOG 300 UNITS/3 ML VIAL SC PRN ×2 (06:39→12:19)
[2022-05-27 07:55] LABS: Anion Gap 10 mmol/L (10-20); BUN (Urea Nitrogen) 14 mg/dL (8.4-25.7); Calc. Creatinine Clearance 94 mL/min (70-130); Calcium 8.6 mg/dL (7.8-10.44); Carbon Dioxide 29 mmol/L (23-31); Chloride 103 mmol/L (98-107); Estimated GFR 100; Glucose 139 mg/dL (83-110); Potassium 3.7 mmol/L (3.5-5.1); Sodium 138 mmol/L (136-145)
[2022-05-27] MEDS: Polyethylene Glycol 3350 17 GM Packet PER TUBE SCH ×2 (09:54→20:44)
[2022-05-27] MEDS: Losartan 25 MG TAB PER TUBE SCH (10:00)
[2022-05-27] MEDS: Pregabalin 75 MG CAP PER TUBE SCH ×3 (10:00→20:44)
[2022-05-27] MEDS: Finasteride 5 MG TAB PO SCH (10:00)
[2022-05-27] MEDS: Potassium Bicarbonate/Cit Ac 20 MEQ TAB PER TUBE SCH (10:00)
[2022-05-27] MEDS: Lansoprazole 15 MG/5 ML (BATCHED)UDCUP PER TUBE SCH ×2 (10:00→20:44)
[2022-05-27] MEDS: Amlodipine 5 MG TAB PER TUBE SCH (20:43)
[2022-05-27] MEDS: Enoxaparin Sodium 40 MG/0.4 ML SYRINGE SC SCH (20:43)
[2022-05-27] MEDS: Acetaminophen/Codeine 30-300mg Tablet PER TUBE PRN (20:44)
[2022-05-27] MEDS: Hydrochlorothiazide 25 MG TAB PER TUBE SCH (20:44)
[2022-05-27] MEDS: Melatonin 3 MG TAB PER TUBE SCH (20:44)
[2022-05-27] MEDS: Mirtazapine 30 MG TAB PER TUBE SCH (20:44)
[2022-05-27] MEDS: Simvastatin 10 MG TAB PER TUBE SCH (20:44)
[2022-05-28] MEDS: Lactated Ringer's 1,000 ML IV SCH ×3 (04:54→23:34)
[2022-05-28] MEDS: Ketorolac Tromethamine 30 MG/ML VIAL IVP SCH ×3 (04:55→16:26)
[2022-05-28] MEDS: Finasteride 5 MG TAB PO SCH (09:49)
[2022-05-28] MEDS: Losartan 25 MG TAB PER TUBE SCH (09:51)
[2022-05-28] MEDS: Pregabalin 75 MG CAP PER TUBE SCH ×3 (09:52→21:30)
[2022-05-28] MEDS: Lansoprazole 15 MG/5 ML (BATCHED)UDCUP PER TUBE SCH ×2 (09:52→21:28)
[2022-05-28] MEDS: Potassium Bicarbonate/Cit Ac 20 MEQ TAB PER TUBE SCH (09:53)
[2022-05-28] MEDS: Polyethylene Glycol 3350 17 GM Packet PER TUBE SCH ×2 (11:39→21:30)
[2022-05-28] MEDS: Acetaminophen/Codeine 30-300mg Tablet PER TUBE PRN (21:28)
[2022-05-28] MEDS: Enoxaparin Sodium 40 MG/0.4 ML SYRINGE SC SCH (21:28)
[2022-05-28] MEDS: Amlodipine 5 MG TAB PER TUBE SCH (21:28)
[2022-05-28] MEDS: Melatonin 3 MG TAB PER TUBE SCH (21:29)
[2022-05-28] MEDS: Hydrochlorothiazide 25 MG TAB PER TUBE SCH (21:29)
[2022-05-28] MEDS: Mirtazapine 30 MG TAB PER TUBE SCH (21:30)
[2022-05-28] MEDS: Simvastatin 10 MG TAB PER TUBE SCH (21:30)
[2022-05-29] MEDS: HumaLOG 300 UNITS/3 ML VIAL SC PRN ×2 (06:19→12:43)
[2022-05-29 08:24] VITALS: BP 116/53; TEMP 97.8
[2022-05-29] MEDS: Lansoprazole 15 MG/5 ML (BATCHED)UDCUP PER TUBE SCH (09:25)
[2022-05-29] MEDS: Polyethylene Glycol 3350 17 GM Packet PER TUBE SCH (09:26)
[2022-05-29] MEDS: Potassium Bicarbonate/Cit Ac 20 MEQ TAB PER TUBE SCH (09:26)
[2022-05-29] MEDS: Pregabalin 75 MG CAP PER TUBE SCH (09:26)
[2022-05-29] MEDS: Finasteride 5 MG TAB PO SCH (09:27)
[2022-05-29] MEDS: Losartan 25 MG TAB PER TUBE SCH (09:28)
[2022-05-29] MEDS ORDERED: Lansoprazole 3 MG/ML ORAL SUSPENSION PER TUBE SCH (21:00)
== END 2022-05-29 14:15 | DRG 326 ==
LOC: ERS 09:48 → INTOOBSV 14:05 → T4-B 14:05 → OBSVTOIN 05-13 16:36 → SURG A 05-23 11:21
PROVIDERS: ADMIT Emergency Medicine; ATTEND Emergency Medicine
PROC: 0DJ08ZZ Inspection of Upper Intestinal Tract, Via Natural or Artificial Opening Endoscopic (ICD-10-PCS; 2022-05-15)
PROC: 0D160ZA Bypass Stomach to Jejunum, Open Approach (ICD-10-PCS; principal; 2022-05-23)
PROC: 02HV33Z Insertion of Infusion Device into Superior Vena Cava, Percutaneous Approach (ICD-10-PCS; 2022-05-23)
DX: K31.1 Adult hypertrophic pyloric stenosis (principal); E43 Unspecified severe protein-calorie malnutrition; J86.9 Pyothorax without fistula; J98.11 Atelectasis; J90 Pleural effusion, not elsewhere classified; K26.9 Duodenal ulcer, unspecified as acute or chronic, without hemorrhage or perforation; E87.6 Hypokalemia; E83.42 Hypomagnesemia; E11.9 Type 2 diabetes mellitus without complications; I10 Essential (primary) hypertension; E78.5 Hyperlipidemia, unspecified; N40.0 Benign prostatic hyperplasia without lower urinary tract symptoms; R13.12 Dysphagia, oropharyngeal phase; U09.9 Post COVID-19 condition, unspecified; Z87.01 Personal history of pneumonia (recurrent); Z93.1 Gastrostomy status; Z79.4 Long term (current) use of insulin; Z79.899 Other long term (current) drug therapy; K42.9 Umbilical hernia without obstruction or gangrene; R91.8 Other nonspecific abnormal finding of lung field; J98.4 Other disorders of lung
CPT/HCPCS: 36415; 36416; 71045; 71250; 74177; 74240; 80048; 80053; 83036; 83605; 83735; 84100; 85025; 85027; 87811; 96372; 96374; 96376; A4649; C1751; C1769; C1776; C9113; G0378; J0690; J1200; J1650; J1815; J1885; J2270; J2405; J2704; J3010; J3475; J3480; J3490; J7120; Q9963; Q9967; S0020; U0003; U0005

== ENCOUNTER 2022-06-04 11:28 | Day surgery (SDC) | payer MEDICARE, BC ==
[2022-06-04] MEDS ORDERED: SUGAMMADEX SODIUM 200 MG/2 ML VIAL ONE (12:27)
[2022-06-04] MEDS ORDERED: Ondansetron PF 4 MG/2 ML Vial ONE (12:36)
[2022-06-04] MEDS ORDERED: PROPOFOL 200 MG/20 ML VIAL ONE (12:36)
[2022-06-04] MEDS ORDERED: Rocuronium Bromide 10 MG/ML (10ML VIAL) ONE (12:36)
[2022-06-04] MEDS ORDERED: Dexamethasone 20 MG/5 ML VIAL ONE (12:36)
[2022-06-04] MEDS ORDERED: Fentanyl 100 MCG/2 ML VIAL ONE (15:41)
== END 2022-06-04 17:46 ==
LOC: SDC 11:28
PROVIDERS: ATTEND Internal Medicine
PROC: 0D2DXUZ Change Feeding Device in Lower Intestinal Tract, External Approach (ICD-10-PCS; principal; 2022-06-04)
DX: K94.23 Gastrostomy malfunction (principal); K91.89 Other postprocedural complications and disorders of digestive system; K26.9 Duodenal ulcer, unspecified as acute or chronic, without hemorrhage or perforation; E89.0 Postprocedural hypothyroidism; E78.5 Hyperlipidemia, unspecified; E11.9 Type 2 diabetes mellitus without complications; Z86.16 Personal history of COVID-19
CPT/HCPCS: C1769; J3010

== ENCOUNTER 2022-06-16 09:15 | Emergency (ER) | payer MEDICARE, BC ==
[2022-06-16] MEDS ORDERED: Sodium Bicarbonate Tab 325 MG TAB PER TUBE SCH (13:45)
[2022-06-16] MEDS ORDERED: Pancrelipase DR 12,000 1 CAP PER TUBE SCH (13:45)
== END 2022-06-16 15:58 | disposition home or self-care (01) ==
LOC: ERS 09:15
DX: K94.23 Gastrostomy malfunction (principal); E78.5 Hyperlipidemia, unspecified; E11.9 Type 2 diabetes mellitus without complications
CPT/HCPCS: 43762

== ENCOUNTER 2022-08-26 15:48 | Outpatient (CLI) | payer MEDICARE, BC | END 2022-08-26 15:49 | disposition home or self-care (01) | LOC: BICRAD 15:48 | PROVIDERS: ATTEND Family Medicine | DX: J69.0 Pneumonitis due to inhalation of food and vomit (principal); R06.02 Shortness of breath; I70.0 Atherosclerosis of aorta | CPT/HCPCS: 71046 ==

== ENCOUNTER 2022-09-03 10:27 | Outpatient (CLI) | payer MEDICARE, BC | END 2022-09-03 10:28 | disposition home or self-care (01) | LOC: BICRAD 10:27 | PROVIDERS: ATTEND Thoracic Surgery (Cardiothoracic Vascular Surgery) | DX: J86.9 Pyothorax without fistula (principal) | CPT/HCPCS: 71046 ==

== ENCOUNTER 2022-09-19 08:22 | Outpatient (CLI) | payer MEDICARE, BC | END 2022-09-19 08:23 | disposition home or self-care (01) | LOC: BICULT 08:22 | PROVIDERS: ATTEND Otolaryngology Plastic Surgery within the Head & Neck | DX: E04.2 Nontoxic multinodular goiter (principal) | CPT/HCPCS: 76536 ==

== ENCOUNTER 2023-01-01 11:51 | Outpatient (CLI) | payer MEDICARE, BC | END 2023-01-01 11:52 | disposition home or self-care (01) | LOC: RAD 11:51 | PROVIDERS: ATTEND Pediatrics | DX: J18.9 Pneumonia, unspecified organism (principal); R91.8 Other nonspecific abnormal finding of lung field; J98.4 Other disorders of lung | CPT/HCPCS: 71046 ==

== ENCOUNTER 2023-01-30 07:35 | Outpatient (CLI) | payer MEDICARE, BC | END 2023-01-30 07:36 | disposition home or self-care (01) | LOC: BICMRI 07:35 | PROVIDERS: ATTEND Nurse Practitioner Family | DX: M54.50 Low back pain, unspecified (principal); M54.6 Pain in thoracic spine; M47.816 Spondylosis without myelopathy or radiculopathy, lumbar region | CPT/HCPCS: 72146; 72148 ==

== ENCOUNTER 2023-04-03 08:08 | Outpatient (CLI) | payer MEDICARE, BC | END 2023-04-03 08:09 | disposition home or self-care (01) | LOC: RAD 08:08 | PROVIDERS: ATTEND Internal Medicine Critical Care Medicine | DX: R06.00 Dyspnea, unspecified (principal) | CPT/HCPCS: 71046 ==

== ENCOUNTER 2023-09-17 10:32 | Outpatient (CLI) | payer MEDICARE ==
[2023-09-17] MEDS ORDERED: E-Z-HD 98% W/W 340GM BOT (x-ray ONLY) ONE (10:57)
== END 2023-09-17 10:33 | disposition home or self-care (01) ==
LOC: RAD 10:32
PROVIDERS: ATTEND Internal Medicine
DX: K26.0 Acute duodenal ulcer with hemorrhage (principal); R63.0 Anorexia; R64 Cachexia; R13.10 Dysphagia, unspecified
CPT/HCPCS: 74220

== ENCOUNTER 2024-03-03 09:58 | Outpatient (CLI) | payer MEDICARE | END 2024-03-03 09:59 | disposition home or self-care (01) | LOC: BICULT 09:58 | PROVIDERS: ATTEND Internal Medicine | DX: E04.1 Nontoxic single thyroid nodule (principal) | CPT/HCPCS: 76536 ==